=== PATIENT | female | born 1970 | race Caucasian/White ===

== ENCOUNTER 2018-12-03 08:08 | Inpatient (IN) | payer BC ==
[~2018-12-03] VITALS: Ht 160 cm; Wt 81.3 kg
[2018-12-03] MEDS ORDERED: SOD CHLORIDE 0.9% 500 ML IV ONE (10:30)
[2018-12-03 10:35] VITALS: BP 87/53; PULSE 96; RESP 18
[2018-12-03] MEDS ORDERED: SOD CHLORIDE 0.9% 1,000 ML IV ONE (11:00)
[2018-12-03 11:07] VITALS: Ht 160 cm; Wt 81.3 kg
[2018-12-03] MEDS ORDERED: HYDROmorphONE 1 MG/ML SYG IV ONE (11:30)
[2018-12-03] MEDS ORDERED: LORAZEPAM 2 MG INJ IV ONE (11:30)
[2018-12-03] MEDS ORDERED: LORAZEPAM 0.5 MG TAB PO PRN (11:30)
[2018-12-03] MEDS ORDERED: HYDROCODONE/APAP (5/325) TAB PO PRN (11:30)
[2018-12-03] MEDS ORDERED: ZOLPIDEM 5 MG TAB PO PRN (11:30)
[2018-12-03] MEDS ORDERED: ACETAMINOPHEN 325 MG TAB PO PRN (11:30)
[2018-12-03 11:34] VITALS: BP 93/58
[2018-12-03] MEDS ORDERED: SOD CHLORIDE 0.9% 1,000 ML IV SCH (12:00)
[2018-12-03] MEDS: ONDANSETRON 4 MG INJ IV PRN ×2 (12:08→19:04)
[2018-12-03] MEDS: DEXTROSE 5%-0.45% NACL 1,000 ML IV SCH ×2 (12:08→17:20)
[2018-12-03] MEDS ORDERED: FAMOTIDINE 20 MG INJ IV SCH (12:30)
[2018-12-03] MEDS: PANTOPRAZOLE (EC) 40 MG TAB PO SCH (12:47)
[2018-12-03 14:30] VITALS: BP 101/53; PULSE 93; RESP 18
[2018-12-03] MEDS: HYDROmorphONE 0.5 MG/0.5 ML SYG IV PRN (19:05)
[2018-12-03 20:00] VITALS: BP 95/52; PULSE 89; RESP 18
[2018-12-04 02:52] VITALS: BP 109/55; PULSE 88; RESP 16
[2018-12-04] MEDS: DEXTROSE 5%-0.45% NACL 1,000 ML IV SCH ×3 (03:28→10:59)
[2018-12-04] MEDS: PANTOPRAZOLE (EC) 40 MG TAB PO SCH (06:08)
[2018-12-04 07:50] VITALS: BP 110/58; PULSE 92; RESP 20
--- NOTE | 2018-12-04 08:21 | EN ---
Date/Time of Note Date/Time of Note DATE: 12/04/18 TIME: 08:19 Event Note Medicine Medicine Event Note H and P dictated admitted for acute pancreatitis with SIRS and borderline hypotension. Elevated liver enzymes, needs MRCP and supportive care. LEBRON TOLENTINO December 04, 2018 08:21
[2018-12-04] MEDS: HYDROmorphONE 0.5 MG/0.5 ML SYG IV PRN ×3 (09:31→21:13)
[2018-12-04] MEDS: ONDANSETRON 4 MG INJ IV PRN ×2 (09:31→16:53)
[2018-12-04] MEDS ORDERED: PIPER-TAZO 3.375 GM IV (PMX) 100 ML IVPB SCH (10:00)
[2018-12-04] MEDS: PIPER-TAZO 3.375 GM IV (PMX) 100 ML IVPB SCH ×3 (10:51→23:26)
[2018-12-04] MEDS: POTASSIUM CHLORIDE 100 ML IVPB SCH ×2 (12:00→12:12)
[2018-12-04] MEDS: D5W-0.45 NACL + KCL 10 MEQ 1,000 ML IV SCH ×3 (13:21→22:15)
--- NOTE | 2018-12-04 14:36 | PN ---
Date/Time of Note Date/Time of Note DATE: 12/04/18 TIME: 14:36 Objective Vitals Vital Signs Date Temp Pulse Resp B/P (MAP) Pulse Ox O2 O2 Flow FiO2 Time Delivery Rate 12/04/18 98.4 92 20 110/58 94 07:50 (75) 12/03/18 Room Air 10:35 Intake and Output 12/03/18 12/03/18 12/04/18 1515:00 23:00 07:00 IntakeIntake Total 1000 ml 300 ml 1000 ml BalanceBalance 1000 ml 300 ml 1000 ml Results Result Diagram: 12/04/18 0500 12/04/18 0500 Medications Medications Current Medications Ondansetron HCl (Zofran Inj) 4 mg Q6H PRN IV NAUSEA/VOMITING Last administered on 12/04/18at 09:31; Admin Dose 4 MG; Start 12/03/18 at 11:30 Hydromorphone HCl (Dilaudid) 0.5 mg Q4H PRN IV .SEVERE PAIN 7-10 Last administered on 12/04/18at 09:31; Admin Dose 0.5 MG; Start 12/03/18 at 11:30 Zolpidem Tartrate (Ambien) 5 mg QHS PRN PO .INSOMNIA; Start 12/03/18 at 11:30 Lorazepam (Ativan) 0.5 mg Q8H PRN PO ANXIETY; Start 12/03/18 at 11:30 Piperacillin Sod/ Tazobactam Sod 100 ml @ 200 mls/hr Q6 IVPB Last administered on 12/04/18at 10:51; Admin Dose 200 MLS/HR; Start 12/04/18 at 10:00 Famotidine (Pepcid Iv) 20 mg Q12H IV ; Start 12/05/18 at 09:00 Potassium Chloride/Dextrose/ Sod Cl 1,000 ml @ 125 mls/hr Q8H IV Last ad ministered on 12/04/18at 13:21; Admin Dose 125 MLS/HR; Start 12/04/18 at 13:00 VTE Prophylaxis Risk score (from Nsg)>0 risk: 4 SCD applied (from Nsg): Yes Lines/Catheters IV Catheter Type: Pascal in Place: No Assessment/Plan Hospital Course Subjective Patient still with abdominal pain however mildly relieved from yesterday Objective Physical exam General: Patient is laying in bed and answers questions appropriately Mentation: Patient is alert and oriented 4, Head: Normocephalic atraumatic Eyes: EOMI, pupils reactive to light Neck: Supple, nontender, midline Respiratory: Clear to auscultation bilaterally Cardiovascular: regular rate, no obvious murmurs Gastrointestinal: Right upper quadrant tender to palpation, bowel sounds heard. Neurological: Moves all extremities spontaneously Skin: No new skin lesions Assessment and plan Gallstone pancreatitis -Initial lipase at outside facility was mildly elevated at 400, lipase negative now -Keep n.p.o. -IV fluid -Liver labs are trending down -GI on board -MR DINH noted, no clear choledocholithiasis Acute cholecystitis -IV antibiotic -IV fluid -N.p.o. -General surgeon, Dr. Rice consulted -CT at transferring facility showing mildly distended gallbladder, however ultrasound and MRCP done here findings are consistent with acute cholecystitis Elevated liver enzymes -Likely secondary to above gallstone issues -Trending downward -GI on board Hypokalemia -Replete as needed Sepsis -Secondary to above -Lactic pending Hypotension -Borderline, asymptomatic, improved Depression with anxiety -Continue home meds when able Dyslipidemia -Continue home meds with able Disposition -Follow-up with GI and general surgery recommendations, keep n.p.o., IV fluid. SHANTELLE SANTOS December 04, 2018 14:36
[2018-12-04 14:43] VITALS: BP 120/75; PULSE 81; RESP 20
--- NOTE | 2018-12-04 15:14 | CONS ---
Assessment/Plan Assessment/Plan Hospital Course (Demo Recall) Abdominal pain likely secondary to acute cholecystitis Transaminitis likely secondary to above (cholecystitis) Leukocytosis History of GERD Elevate lipase - now improved, unlikely pancreatitis Depression History of bariatric surgery Plan: Discussed with the patient and daughter at bedside the imaging findings and laboratory studies which as most consistent with acute cholecystitis. No immediate need for ERCP. Surgical consult is recommended. Continue IV antibiotics. Supportive care with pain medications as needed. Monitor LFT's and bilirubin. Check amylase and lipase tomorrow. Can have clear liquids from GI standpoint. Patient seen in collaboration with Dr. Crawford. CC: PEDRO CRAWFORD MD ; Consultation Date/Type/Reason Admit Date/Time December 03, 2018 at 10:10 Date of Consultation: December 04, 2018 Type of Consult gastroenterology Reason for Consultation abdominal pain, cholecystitis, possible pancreatitis, possible choledocholithiasis Requesting Provider: SHANTELLE SANTOS Date/Time of Note DATE: 12/04/18 TIME: 14:54 Hx of Present Illness Ms. Rosas is a 48 y/o woman with a history of gastric ulcer, bariatric surgery, depression, and hysterectomy who presented to [facility] for abdominal pain for about the past 2 weeks. The pain is sharp under both ribs associated with nausea and vomiting and shortness of breath due to sever pain. She reports chills, no fevers. She though she had a gastric ulcer due to a past history of this. She has had prior EGD's in the past in 2018. She took pepcid though this did not improve and presented to the ER at [facility]. A CT scan done there showed gallbladder distention though no biliary dilation. Lipase at [facility] was >400, though here at [facility] decreased to 93. She had an abdominal US which showed cholelithiasis and fluid around the gallbladder. MRCP was done 12/03/18 which showed findings consistent with acute cholecystitis though no evidence of biliary dilation or choledocholithiasis. She had marked leukocytosis on admission as well. A 10 point review of systems is otherwise negative except as mentioned in the above HPI. Past Medical History See HPI Medical History: GERD Medications Current Medications Ondansetron HCl (Zofran Inj) 4 mg Q6H PRN IV NAUSEA/VOMITING Last administered on 12/04/18at 09:31; Admin Dose 4 MG; Start 12/03/18 at 11:30 Hydromorphone HCl (Dilaudid) 0.5 mg Q4H PRN IV .SEVERE PAIN 7-10 Last administered on 12/04/18at 09:31; Admin Dose 0.5 MG; Start 12/03/18 at 11:30 Zolpidem Tartrate (Ambien) 5 mg QHS PRN PO .INSOMNIA; Start 12/03/18 at 11:30 Lorazepam (Ativan) 0.5 mg Q8H PRN PO ANXIETY; Start 12/03/18 at 11:30 Piperacillin Sod/ Tazobactam Sod 100 ml @ 200 mls/hr Q6 IVPB Last administered on 12/04/18at 10:51; Admin Dose 200 MLS/HR; Start 12/04/18 at 10:00 Famotidine (Pepcid Iv) 20 mg Q12H IV ; Start 12/05/18 at 09:00 Potassium Chloride/Dextrose/ Sod Cl 1,000 ml @ 125 mls/hr Q8H IV Last administered on 12/04/18at 13:21; Admin Dose 125 MLS/HR; Start 12/04/18 at 13:00 Allergies: Coded Allergies: povidone-iodine (Verified Allergy, Intermediate, 12/03/18) soap (Verified Allergy, Intermediate, 12/03/18) NSAIDS (Non-Steroidal Anti-Inflamma (Verified Allergy, Unknown, 12/03/18) acetaminophen (Verified Allergy, Unknown, 12/03/18) atorvastatin (Verified Allergy, Unknown, 12/03/18) Past Surgical History Past Surgical Hx: other (hysterectomy, bariatric surgery) Family History Significant Family History: no pertinent family hx Social History Alcohol Use: occasionally Smoking Status: Former smoker Exam/Review of Systems Exam Vitals Vital Signs Date Temp Pulse Resp B/P (MAP) Pulse Ox O2 O2 Flow FiO2 Time Delivery Rate 12/04/18 98.0 81 20 120/75 95 14:43 (90) 12/03/18 Room Air 10:35 Intake and Output 12/03/18 12/03/18 12/04/18 1414:59 22:59 06:59 IntakeIntake Total 1000 ml 300 ml 1000 ml BalanceBalance 1000 ml 300 ml 1000 ml Constitutional: alert, oriented Psych: nl mood/affect Head: normocephalic, atraumatic Eyes: nl conjunctiva, nl lids ENMT: nl external ears & nose Neck: supple Respiratory: clear to auscultation Cardiovascular: regular rate and rhythm, nl pulses Gastrointestinal: soft, rebound or guarding, tender (right upper quadrant tenderness to palpation) Musculoskeletal: nl extremities to inspection Extremities: normal pulses Neurological: FLATBED DRIVER II-XII intact, nl mental status, nl speech Skin: nl turgor Lymph: nl lymph nodes Results Result Diagram: 12/04/18 0500 12/04/18 0500 Results 24hrs Laboratory Tests Test 12/04/18 05:00 12/04/18 12:19 White Blood Count 16.8 H Red Blood Count 3.21 L Hemoglobin 9.3 L Hematocrit 27.9 L Mean Corpuscular Volume 86.9 Mean Corpuscular Hemoglobin 29.0 Mean Corpuscular Hemoglobin Concent 33.3 Red Cell Distribution Width 15.9 H Platelet Count 242 Mean Platelet Volume 11.1 H Immature Granulocytes % 1.100 H Neutrophils % Segmented Neutrophils % (Manual) 62 Band Neutrophils % (Manual) 20 H Lymphocytes % Lymphocytes % (Manual) 8 L Monocytes % Monocytes % (Manual) 10 Eosinophils % Basophils % Nucleated Red Blood Cells % 0.0 Immature Granulocytes # 0.180 H Neutrophils # Neutrophils # (Manual) 11.0 H Band Neutrophils # 3.3 H Lymphocytes (Manual) 1.3 Lymphocytes # Monocytes # Monocytes # (Manual) 1.6 H Eosinophils # Basophils # Nucleated Red Blood Cells # Platelet Estimate NORMAL Poikilocytosis 3+ Sodium Level 140 Potassium Level 3.4 L Chloride Level 111 H Carbon Dioxide Level 22 Anion Gap 7 Blood Urea Nitrogen 13 Creatinine 0.80 Est Glomerular Filtrat Rate mL/min > 60 Glucose Level 103 Calcium Level 7.7 L Phosphorus Level 3.2 Magnesium Level 1.5 L Total Bilirubin 0.8 Direct Bilirubin 0.50 H Indirect Bilirubin 0.3 Aspartate Amino Transf (AST/SGOT) 193 H Alanine Aminotransferase (ALT/SGPT) 341 H Alkaline Phosphatase 172 H Total Protein 4.6 L Albumin 2.6 L Globulin 2.00 Albumin/Globulin Ratio 1.30 Triglycerides Level 87 Cholesterol Level 107 LDL Cholesterol, Calculated 47 HDL Cholesterol 43 Cholesterol/HDL Ratio 2.4 Lipase 93 Thyroid Stimulating Hormone (TSH) 1.180 Free Thyroxine Index 2.29 Thyroxine (T4) 5.8 Triiodothyronine (T3) Uptake 39.4 Urine Color NERISSA Urine Clarity CLEAR Urine pH 6.0 Urine Specific [place] 1.011 Urine Ketones NEGATIVE Urine Nitrite NEGATIVE Urine Bilirubin NEGATIVE Urine Urobilinogen 2+ H Urine Leukocyte Esterase NEGATIVE Urine Hemoglobin NEGATIVE Urine Glucose NEGATIVE Urine Total Protein NEGATIVE Imaging Imaging Abdominal US 12/03/18: IMPRESSION: Cholelithiasis with gallbladder wall thickening and pericholecystic fluid may represent acute cholecystitis. This could be confirmed with a HIDA scan if clinically indicated. MRCP 12/03/18: IMPRESSION: Limited evaluation due to motion and susceptibility artifact obscuring the mid abdomen. Cholelithiasis. Gallbladder wall thickening suggestive of acute cholecystitis. No evidence of biliary ductal dilatation or choledocholithiasis of the visualized common bile duct. Trace mesenteric edema and ascites. Correlate for pancreatitis. Medications Medication Current Medications Ondansetron HCl (Zofran Inj) 4 mg Q6H PRN IV NAUSEA/VOMITING Last administered on 12/04/18 09:31; Admin Dose 4 MG; Start 12/03/18 at 11:30 Hydromorphone HCl (Dilaudid) 0.5 mg Q4H PRN IV .SEVERE PAIN 7-10 Last administered on 12/04/18 09:31; Admin Dose 0.5 MG; Start 12/03/18 at 11:30 Zolpidem Tartrate (Ambien) 5 mg QHS PRN PO .INSOMNIA; Start 12/03/18 at 11:30 Lorazepam (Ativan) 0.5 mg Q8H PRN PO ANXIETY; Start 12/03/18 at 11:30 Piperacillin Sod/ Tazobactam Sod 100 ml @ 200 mls/hr Q6 IVPB Last administered on 12/04/18at 10:51; Admin Dose 200 MLS/HR; Start 12/04/18 at 10:00 Famotidine (Pepcid Iv) 20 mg Q12H IV ; Start 12/05/18 at 09:00 Potassium Chloride/Dextrose/ Sod Cl 1,000 ml @ 125 mls/hr Q8H IV Last administered on 12/04/18at 13:21; Admin Dose 125 MLS/HR; Start 12/04/18 at 13:00 DEYSI RICCI NP December 04, 2018 15:09
[2018-12-04 20:00] VITALS: BP 149/85; PULSE 88; RESP 17
--- NOTE | 2018-12-04 20:04 | CONS ---
Assessment/Plan Assessment/Plan Hospital Course (Demo Recall) 1. Cholecystitis, Cholelithiasis, Transaminitis -iv abx -ivf -npo -hida pending Thank you Consultation Date/Type/Reason Admit Date/Time December 03, 2018 at 10:10 Date of Consultation: December 04, 2018 Date/Time of Note DATE: 12/04/18 TIME: 20:04 Past Medical History Medical History: GERD Medications Current Medications Ondansetron HCl (Zofran Inj) 4 mg Q6H PRN IV NAUSEA/VOMITING Last administered on 12/04/18at 16:53; Admin Dose 4 MG; Start 12/03/18 at 11:30 Hydromorphone HCl (Dilaudid) 0.5 mg Q4H PRN IV .SEVERE PAIN 7-10 Last administered on 12/04/18at 16:50; Admin Dose 0.5 MG; Start 12/03/18 at 11:30 Zolpidem Tartrate (Ambien) 5 mg QHS PRN PO .INSOMNIA; Start 12/03/18 at 11:30 Lorazepam (Ativan) 0.5 mg Q8H PRN PO ANXIETY; Start 12/03/18 at 11:30 Piperacillin Sod/ Tazobactam Sod 100 ml @ 200 mls/hr Q6 IVPB Last administered on 12/04/18at 17:53; Admin Dose 200 MLS/HR; Start 12/04/18 at 10:00 Famotidine (Pepcid Iv) 20 mg Q12H IV ; Start 12/05/18 at 09:00 Potassium Chloride/Dextrose/ Sod Cl 1,000 ml @ 125 mls/hr Q8H IV Last admi nistered on 12/04/18at 13:21; Admin Dose 125 MLS/HR; Start 12/04/18 at 13:00 Allergies: Coded Allergies: povidone-iodine (Verified Allergy, Intermediate, 12/03/18) soap (Verified Allergy, Intermediate, 12/03/18) NSAIDS (Non-Steroidal Anti-Inflamma (Verified Allergy, Unknown, 12/03/18) acetaminophen (Verified Allergy, Unknown, 12/03/18) atorvastatin (Verified Allergy, Unknown, 12/03/18) Past Surgical History Past Surgical Hx: other (hysterectomy, bariatric surgery) Social History Alcohol Use: occasionally Smoking Status: Former smoker Exam/Review of Systems Exam Vitals Vital Signs Date Temp Pulse Resp B/P (MAP) Pulse Ox O2 O2 Flow FiO2 Time Delivery Rate 12/04/18 98.0 81 20 120/75 95 14:43 (90) 12/03/18 Room Air 10:35 Intake and Output 12/03/18 12/03/18 12/04/18 1515:00 23:00 07:00 IntakeIntake Total 1000 ml 300 ml 1000 ml BalanceBalance 1000 ml 300 ml 1000 ml Results Result Diagram: 12/04/18 0500 12/04/18 0500 Results 24hrs Laboratory Tests Test 12/04/18 05:00 12/04/18 12:19 12/04/18 14:55 White Blood Count 16.8 H Red Blood Count 3.21 L Hemoglobin 9.3 L Hematocrit 27.9 L Mean Corpuscular Volume 86.9 Mean Corpuscular Hemoglobin 29.0 Mean Corpuscular Hemoglobin Concent 33.3 Red Cell Distribution Width 15.9 H Platelet Count 242 Mean Platelet Volume 11.1 H Immature Granulocytes % 1.100 H Neutrophils % Segmented Neutrophils % (Manual) 62 Band Neutrophils % (Manual) 20 H Lymphocytes % Lymphocytes % (Manual) 8 L Monocytes % Monocytes % (Manual) 10 Eosinophils % Basophils % Nucleated Red Blood Cells % 0.0 Immature Granulocytes # 0.180 H Neutrophils # Neutrophils # (Manual) 11.0 H Band Neutrophils # 3.3 H Lymphocytes (Manual) 1.3 Lymphocytes # Monocytes # Monocytes # (Manual) 1.6 H Eosinophils # Basophils # Nucleated Red Blood Cells # Platelet Estimate NORMAL Poikilocytosis 3+ Sodium Level 140 Potassium Level 3.4 L Chloride Level 111 H Carbon Dioxide Level 22 Anion Gap 7 Blood Urea Nitrogen 13 Creatinine 0.80 Est Glomerular Filtrat Rate mL/min > 60 Glucose Level 103 Calcium Level 7.7 L Phosphorus Level 3.2 Magnesium Level 1.5 L Total Bilirubin 0.8 Direct Bilirubin 0.50 H Indirect Bilirubin 0.3 Aspartate Amino Transf (AST/SGOT) 193 H Alanine Aminotransferase (ALT/SGPT) 341 H Alkaline Phosphatase 172 H Total Protein 4.6 L Albumin 2.6 L Globulin 2.00 Albumin/Globulin Ratio 1.30 Triglycerides Level 87 Cholesterol Level 107 LDL Cholesterol, Calculated 47 HDL Cholesterol 43 Cholesterol/HDL Ratio 2.4 Lipase 93 Thyroid Stimulating Hormone (TSH) 1.180 Free Thyroxine Index 2.29 Thyroxine (T4) 5.8 Triiodothyronine (T3) Uptake 39.4 Urine Color NERISSA Urine Clarity CLEAR Urine pH 6.0 Urine Specific [place] 1.011 Urine Ketones NEGATIVE Urine Nitrite NEGATIVE Urine Bilirubin NEGATIVE Urine Urobilinogen 2+ H Urine Leukocyte Esterase NEGATIVE Urine Hemoglobin NEGATIVE Urine Glucose NEGATIVE Urine Total Protein NEGATIVE Lactic Acid Level 1.5 Medications Medication Current Medications Ondansetron HCl (Zofran Inj) 4 mg Q6H PRN IV NAUSEA/VOMITING Last administered on 12/04/18at 16:53; Admin Dose 4 MG; Start 12/03/18 at 11:30 Hydromorphone HCl (Dilaudid) 0.5 mg Q4H PRN IV .SEVERE PAIN 7-10 Last administered on 12/04/18at 16:50; Admin Dose 0.5 MG; Start 12/03/18 at 11:30 Zolpidem Tartrate (Ambien) 5 mg QHS PRN PO .INSOMNIA; Start 12/03/18 at 11:30 Lorazepam (Ativan) 0.5 mg Q8H PRN PO ANXIETY; Start 12/03/18 at 11:30 Piperacillin Sod/ Tazobactam Sod 100 ml @ 200 mls/hr Q6 IVPB Last administered on 12/04/18at 17:53; Admin Dose 200 MLS/HR; Start 12/04/18 at 10:00 Famotidine (Pepcid Iv) 20 mg Q12H IV ; Start 12/05/18 at 09:00 Potassium Chloride/Dextrose/ Sod Cl 1,000 ml @ 125 mls/hr Q8H IV Last administered on 12/04/18at 13:21; Admin Dose 125 MLS/HR; Start 12/04/18 at 13:00 CHASE DIAL MD December 04, 2018 20:04
[2018-12-05] MEDS ORDERED: MAGNESIUM SULFATE 2 GM/50 ML 50 ML IVPB ONE (00:30)
[2018-12-05] MEDS: HYDROmorphONE 0.5 MG/0.5 ML SYG IV PRN ×4 (05:30→21:17)
[2018-12-05] MEDS: PIPER-TAZO 3.375 GM IV (PMX) 100 ML IVPB SCH ×3 (05:31→17:12)
[2018-12-05] MEDS: ONDANSETRON 4 MG INJ IV PRN ×4 (05:31→21:17)
[2018-12-05 07:59] VITALS: BP 122/76; PULSE 76; RESP 16
[2018-12-05] MEDS: FAMOTIDINE 20 MG INJ IV SCH ×2 (08:56→21:01)
[2018-12-05] MEDS: D5W-0.45 NACL + KCL 10 MEQ 1,000 ML IV SCH ×2 (08:57→20:58)
--- NOTE | 2018-12-05 12:18 | PN ---
Date/Time of Note Date/Time of Note DATE: 12/05/18 TIME: 12:17 Objective Vitals Vital Signs Date Temp Pulse Resp B/P (MAP) Pulse Ox O2 O2 Flow FiO2 Time Delivery Rate 12/05/18 98.4 76 16 122/76 93 07:59 (91) 12/03/18 Room Air 10:35 Intake and Output 12/04/18 12/04/18 12/05/18 1515:00 23:00 07:00 IntakeIntake Total 905 ml 1100 ml 700 ml BalanceBalance 905 ml 1100 ml 700 ml Results Result Diagram: 12/05/1852312/05/18523 Medications Medications Current Medications Ondansetron HCl (Zofran Inj) 4 mg Q6H PRN IV NAUSEA/VOMITING Last administered on 12/05/18 09:58; Admin Dose 4 MG; Start 12/03/18 at 11:30 Hydromorphone HCl (Dilaudid) 0.5 mg Q4H PRN IV .SEVERE PAIN 7-10 Last administered on 12/05/18 09:55; Admin Dose 0.5 MG; Start 12/03/18 at 11:30 Zolpidem Tartrate (Ambien) 5 mg QHS PRN PO .INSOMNIA; Start 12/03/18 at 11:30 Lorazepam (Ativan) 0.5 mg Q8H PRN PO ANXIETY; Start 12/03/18 at 11:30 Piperacillin Sod/ Tazobactam Sod 100 ml @ 200 mls/hr Q6 IVPB Last administered on 12/05/18 05:31; Admin Dose 200 MLS/HR; Start 12/04/18 at 10:00 Famotidine (Pepcid Iv) 20 mg Q12H IV Last administered on 12/05/18 08:56; Admin Dose 20 MG; Start 12/05/18 at 09:00 Potassium Chloride/Dextrose/ Sod Cl 1,000 ml @ 125 mls/hr Q8H IV Last administered on 12/05/18 08:57; Admin Dose 125 MLS/HR; Start 12/04/18 at 13:00 VTE Prophylaxis Risk score (from Ns)>0 risk: 4 SCD applied (from Ns): Yes Lines/Catheters IV Catheter Type: Pascal in Place: No Assessment/Plan Hospital Course Subjective Patient still with abdominal pain however mildly relieved from yesterday Objective Physical exam General: Patient is laying in bed and answers questions appropriately Mentation: Patient is alert and oriented 4, Head: Normocephalic atraumatic Eyes: EOMI, pupils reactive to light Neck: Supple, nontender, midline Respiratory: Clear to auscultation bilaterally Cardiovascular: regular rate, no obvious murmurs Gastrointestinal: Right upper quadrant tender to palpation, bowel sounds heard. Neurological: Moves all extremities spontaneously Skin: No new skin lesions Assessment and plan Gallstone pancreatitis -Initial lipase at outside facility was mildly elevated at 400, lipase negative now -Keep n.p.o. -IV fluid -Liver labs are trending down -GI on board -MRCP noted, no clear choledocholithiasis Acute cholecystitis -IV antibiotic -IV fluid -N.p.o. -General surgeon, Dr. Rice consulted -CT at transferring facility showing mildly distended gallbladder, however ultrasound and MRCP done here findings are consistent with acute cholecystitis -HIDA pending Elevated liver enzymes -Likely secondary to above gallstone issues -Trending downward -GI on board Hypokalemia -Replete as needed Sepsis -Secondary to above -Lactic pending Hypotension -Borderline, asymptomatic, improved Depression with anxiety -Continue home meds when able Dyslipidemia -Continue home meds with able Disposition -Follow-up with GI and general surgery recommendations, keep n.p.o., IV fluid. SHANTELLE SANTOS December 05, 2018 12:18
[2018-12-05 14:41] VITALS: BP 115/76; PULSE 81; RESP 16
--- NOTE | 2018-12-05 14:42 | PN ---
Date/Time of Note Date/Time of Note DATE: 12/05/18 TIME: 14:35 Assessment/Plan VTE Prophylaxis Risk score (from Nsg)>0 risk: 2 SCD applied (from Ns): Yes SCD contraindicated: low risk/ambulating Pharmacological prophylaxis: heparin Lines/Catheters IV Catheter Type (from Nrsg): Peripheral IV Urinary Cath still in place: No Assessment/Plan Assessment/Plan Abdominal pain likely secondary to acute cholecystitis Transaminitis likely secondary to above (cholecystitis) Leukocytosis History of GERD Elevate lipase - now improved, amylase normal - unlikely pancreatitis Depression History of bariatric surgery Plan: HIDA scan pending. No immediate need for ERCP. Further plan per surgery team. Continue IV antibiotics. Supportive care with pain medications as needed. Monitor LFT's and bilirubin. Keep NPO. Patient seen in collaboration with Dr. Crawford. Subjective: Patient is NPO, denies any nausea or vomiting. States abdominal pain under the ribcage is about the same, mild improvement. HIDA scan pending. Denies fevers or chills. Discussed plan with patient. Physical exam: Constitutional: alert, oriented Psych: nl mood/affect Head: normocephalic, atraumatic Eyes: nl conjunctiva, nl lids ENMT: nl external ears & nose Neck: supple Respiratory: clear to auscultation Cardiovascular: regular rate and rhythm, nl pulses Gastrointestinal: soft, no rebound or guarding, mildly tender bilateral upper quadrants Musculoskeletal: nl extremities to inspection Extremities: normal pulses Neurological: ASSISTANT ART DIRECTOR II-XII intact, nl mental status, nl speech Skin: nl turgor Lymph: nl lymph nodes Result Diagram: 12/05/1852312/05/1824 Results 24hrs Laboratory Tests Test 12/04/18 14:55 12/05/18 05:24 Lactic Acid Level 1.5 White Blood Count 12.4 #H Red Blood Count 3.30 L Hemoglobin 9.2 L Hematocrit 28.5 L Mean Corpuscular Volume 86.4 Mean Corpuscular Hemoglobin 27.9 L Mean Corpuscular Hemoglobin Concent 32.3 Red Cell Distribution Width 16.0 H Platelet Count 246 Mean Platelet Volume 11.5 H Immature Granulocytes % 1.900 H Neutrophils % Segmented Neutrophils % (Manual) 71 Band Neutrophils % (Manual) 22 H Lymphocytes % Lymphocytes % (Manual) 6 L Monocytes % Monocytes % (Manual) 1 Eosinophils % Basophils % Nucleated Red Blood Cells % 0.0 Immature Granulocytes # 0.230 H Neutrophils # Neutrophils # (Manual) 9.1 H Band Neutrophils # 2.7 H Lymphocytes (Manual) 0.7 L Lymphocytes # Monocytes # Monocytes # (Manual) 0.1 L Eosinophils # Basophils # Nucleated Red Blood Cells # Platelet Estimate NORMAL Giant Platelets 3 H Poikilocytosis 2+ Ovalocytes 1+ Sodium Level 141 Potassium Level 3.6 Chloride Level 113 H Carbon Dioxide Level 22 Anion Gap 6 Blood Urea Nitrogen 6 L Creatinine 0.70 Est Glomerular Filtrat Rate mL/min > 60 Glucose Level 117 Calcium Level 7.9 L Magnesium Level 2.3 Total Bilirubin 0.6 Direct Bilirubin 0.10 # Indirect Bilirubin 0.5 Aspartate Amino Transf (AST/SGOT) 80 H Alanine Aminotransferase (ALT/SGPT) 230 H Alkaline Phosphatase 239 H Total Protein 5.5 L Albumin 2.8 L Globulin 2.70 Albumin/Globulin Ratio 1.03 Amylase Level 45 Lipase 145 CC: PEDRO CRAWFORD MD ; Exam/Review of Systems Exam Vitals Vital Signs Date Temp Pulse Resp B/P (MAP) Pulse Ox O2 O2 Flow FiO2 Time Delivery Rate 12/05/18 98.4 76 16 122/76 93 07:59 (91) 12/03/18 Room Air 10:35 Intake and Output 12/04/18 12/04/18 12/05/18 1515:00 23:00 07:00 IntakeIntake Total 905 ml 1100 ml 700 ml BalanceBalance 905 ml 1100 ml 700 ml Results Results 24hrs Laboratory Tests Test 12/04/18 14:55 12/05/18 05:24 Lactic Acid Level 1.5 White Blood Count 12.4 #H Red Blood Count 3.30 L Hemoglobin 9.2 L Hematocrit 28.5 L Mean Corpuscular Volume 86.4 Mean Corpuscular Hemoglobin 27.9 L Mean Corpuscular Hemoglobin Concent 32.3 Red Cell Distribution Width 16.0 H Platelet Count 246 Mean Platelet Volume 11.5 H Immature Granulocytes % 1.900 H Neutrophils % Segmented Neutrophils % (Manual) 71 Band Neutrophils % (Manual) 22 H Lymphocytes % Lymphocytes % (Manual) 6 L Monocytes % Monocytes % (Manual) 1 Eosinophils % Basophils % Nucleated Red Blood Cells % 0.0 Immature Granulocytes # 0.230 H Neutrophils # Neutrophils # (Manual) 9.1 H Band Neutrophils # 2.7 H Lymphocytes (Manual) 0.7 L Lymphocytes # Monocytes # Monocytes # (Manual) 0.1 L Eosinophils # Basophils # Nucleated Red Blood Cells # Platelet Estimate NORMAL Giant Platelets 3 H Poikilocytosis 2+ Ovalocytes 1+ Sodium Level 141 Potassium Level 3.6 Chloride Level 113 H Carbon Dioxide Level 22 Anion Gap 6 Blood Urea Nitrogen 6 L Creatinine 0.70 Est Glomerular Filtrat Rate mL/min > 60 Glucose Level 117 Calcium Level 7.9 L Magnesium Level 2.3 Total Bilirubin 0.6 Direct Bilirubin 0.10 # Indirect Bilirubin 0.5 Aspartate Amino Transf (AST/SGOT) 80 H Alanine Aminotransferase (ALT/SGPT) 230 H Alkaline Phosphatase 239 H Total Protein 5.5 L Albumin 2.8 L Globulin 2.70 Albumin/Globulin Ratio 1.03 Amylase Level 45 Lipase 145 Medications Medication Current Medications Ondansetron HCl (Zofran Inj) 4 mg Q6H PRN IV NAUSEA/VOMITING Last administered on 12/05/18 09:58; Admin Dose 4 MG; Start 12/03/18 at 11:30 Hydromorphone HCl (Dilaudid) 0.5 mg Q4H PRN IV .SEVERE PAIN 7-10 Last administered on 12/05/18 09:55; Admin Dose 0.5 MG; Start 12/03/18 at 11:30 Zolpidem Tartrate (Ambien) 5 mg QHS PRN PO .INSOMNIA; Start 12/03/18 at 11:30 Lorazepam (Ativan) 0.5 mg Q8H PRN PO ANXIETY; Start 12/03/18 at 11:30 Piperacillin Sod/ Tazobactam Sod 100 ml @ 200 mls/hr Q6 IVPB Last administered on 12/05/18 12:20; Admin Dose 200 MLS/HR; Start 12/04/18 at 10:00 Famotidine (Pepcid Iv) 20 mg Q12H IV Last administered on 12/05/18 08:56; Admin Dose 20 MG; Start 12/05/18 at 09:00 Potassium Chloride/Dextrose/ Sod Cl 1,000 ml @ 125 mls/hr Q8H IV Last administered on 12/05/18 08:57; Admin Dose 125 MLS/HR; Start 12/04/18 at 13:00 DEYSI RICCI NP December 05, 2018 14:42
[2018-12-05 20:00] VITALS: BP 126/66; PULSE 76; RESP 18
--- NOTE | 2018-12-05 23:28 | PN ---
Date/Time of Note Date/Time of Note DATE: 12/05/18 TIME: 23:28 Assessment/Plan Lines/Catheters IV Catheter Type (from [facility]): Peripheral IV Pascal in Place (from [facility]): No Exam/Review of Systems Vital Signs Vitals Vital Signs Date Temp Pulse Resp B/P (MAP) Pulse Ox O2 O2 Flow FiO2 Time Delivery Rate 12/05/18 98.4 76 18 126/66 97 20:00 (86) 12/03/18 Room Air 10:35 Intake and Output 12/04/18 12/04/18 12/05/18 1515:00 23:00 07:00 IntakeIntake Total 905 ml 1100 ml 700 ml BalanceBalance 905 ml 1100 ml 700 ml Results Result Diagram: 12/05/18 0524 12/05/18 0524 CHASE DIAL MD December 05, 2018 23:28
[2018-12-06] MEDS: PIPER-TAZO 3.375 GM IV (PMX) 100 ML IVPB SCH ×4 (00:19→17:51)
[2018-12-06] MEDS: HYDROmorphONE 0.5 MG/0.5 ML SYG IV PRN ×2 (01:30→05:48)
[2018-12-06 02:00] VITALS: BP 123/76; PULSE 65; RESP 17
[2018-12-06] MEDS: D5W-0.45 NACL + KCL 10 MEQ 1,000 ML IV SCH ×3 (05:48→15:08)
[2018-12-06] MEDS: ONDANSETRON 4 MG INJ IV PRN (05:48)
--- NOTE | 2018-12-06 07:23 | HP ---
DATE OF ADMISSION: 12/03/2018 PRESENTING COMPLAINT: Abdominal pain. HISTORY OF PRESENTING COMPLAINT: A 48-year-old female with past medical history of morbid obesity, status post weight loss surgery, which sounds like gastric stapling, gastric ulcer, major depressive disorder, who was found to have a jejunal ulcer at [place] because of abdominal pain and acute pancreatitis. She has a history of gallstones. She has not had similar pain before. Currently, she has been feeling sick for the last 10 days. However, over the last 1 day, she has got some worsening epigastric abdominal pain that radiates to her back. She has not vomitted but she is having a lot of nausea. Pain is rated at a 10 out of 10. She has not had similar pain in the past. There is no hematemesis, hematochezia or melenic stool however. ER evaluation confirmed acute pancreatitis with the presence of elevation in her lipase levels, she was also found to have leukocytosis. She was transferred to us for further management due to insurance reasons PAST MEDICAL HISTORY: Summarized above. PAST SURGICAL HISTORY: Summarized above. The patient also had a hysterectomy and a left hand finger surgery. ALLERGIES: SHE REPORTS ALLERGIC TO NSAIDs, LIPITOR, IODINE. FAMILY HISTORY: Positive for hypertension, diabetes with history of gallstones. REVIEW OF SYSTEMS: Per HPI. PHYSICAL EXAMINATION: VITAL SIGNS: Temperature 99.3, pulse 96, respirations 18, blood pressure is 87/53 . GENERAL: anxious, obese. HEENT: Head is normocephalic. Pupils equal and reactive. There is no scleral jaundice. No conjunctivae pallor. Mucous membranes dry. Posterior pharynx is clear of erythema and exudate. NECK: Supple, nontender. CHEST: Clear to auscultation with good air entry on both sides. CARDIOVASCULAR: S1 and S2 only. ABDOMEN: Quite tender, especially in the epigastric area, but not tympanitic or distended. Positive bowel sounds. SKIN: Devoid of rash or jaundice. EXTREMITIES: Lower extremities negative for edema. NEUROLOGIC: No gross focal deficits. PSYCHIATRIC: The patient is anxious, but denies suicidal or homicidal ideation. LABORATORY VALUES: Were reviewed from [facility] and pertinent findings essentially as summarized above. The CT scan of the abdomen was not very revealing of her abdomen and pelvis. ASSESSMENT: A 48-year-old female status post gastric stapling sent to us 2/2 abd pain admitted and managed as follows : 1. Abdominal pain 2/2 acute pancreatitis . 2. Possible choledocholithiasis with acute cholecystitis and possible gallstone pancreatitis. -no gallstones noted on imaging 3. Previous Morbid obesity status post gastric stapling 4. She had DM2 she was obese. She also had high cholesterol at the time, but has been off medications since. 5. Borderline hypotension: ?SIRS 6. History of gastric ulcer, status post treatment per report Plan: admit for continued care NPO for now, IV fluids, pain control, PPI therapy. The patient will need a gallbladder ultrasound to start out and subsequent MRCP. Depending on the findings will determine if we will get a surgery and GI consultation. I will keep her pain under control with pain medicine. I will resume her pain home medications throughout her hospital stay. Plan of care has been discussed with her in detail. Questions have been answered. For further information and clarification, please review the chart. Dictated By: LEBRON TOLENTINO MD, BA/HARINDER Conf#: [id number] DID#: [id number] MTDWerner
[2018-12-06 08:40] VITALS: BP 115/65; PULSE 73; RESP 18
[2018-12-06] MEDS: FAMOTIDINE 20 MG INJ IV SCH ×2 (08:49→20:31)
[2018-12-06] MEDS ORDERED: traMADol 50 MG TAB PO PRN (11:00)
[2018-12-06 14:26] VITALS: BP 137/73; PULSE 78; RESP 18
--- NOTE | 2018-12-06 15:47 | PN ---
Date/Time of Note Date/Time of Note DATE: 12/06/18 TIME: 15:30 Assessment/Plan VTE Prophylaxis Risk score (from Nsg)>0 risk: 2 SCD applied (from Nsg): Yes Pharmacological prophylaxis: other (scds) Lines/Catheters IV Catheter Type (from Nrsg): Peripheral IV Urinary Cath still in place: No Assessment/Plan Hospital Course Assessment/Plan Abdominal pain likely secondary to acute cholecystitis -HIDA scan -No scintigraphic evidence to suggest the presence of common bile or cystic ducts obstruction. Transaminitis- trending down -MRCP-No evidence of biliary ductal dilatation or choledocholithiasis of the visualized common bile duct. -Gallbladder wall thickening suggestive of acute cholecystitis Leukocytosis- resolved History of GERD Elevate lipase -Amylase normal Depression History of bariatric surgery Plan: No plan for ERCP at this time Clear liquid diet Continue IV antibiotics. Supportive care with pain medications as needed. Monitor LFT's Patient seen in collaboration with Dr. Crawford. Subjective: Pt on clear liquid diet, lipase elevated today, LFTS trending down. Currently she c/o upper abdominal pain 5/10 No BM for for 5-6 days, will add MiraLAX. Encourage ambulation. Pt is tolerating clear liquid diet PHYSICAL EXAMINATION: GENERAL: Well developed, well nourished, alert & oriented x 3, in no acute distress SKIN: No lesions HEAD: Normocephalic, atraumatic, no tenderness. EYES: Pupils equal reactive to light, non-icteric, no discharge. EARS/NOSE AND THROAT: Ears normal, nose normal. NECK: Supple, no masses CHEST: Inspection within normal limits. CARDIOVASCULAR: Heart: Regular rate and rhythm RESPIRATORY: Lungs clear to auscultation GASTROINTESTINAL AND LIVER: Abdomen: Soft, upper abdominal pain 5/10, non- distended, no hernias, normoactive bowel sounds. Rectal: Deferred. EXTREMITIES: No cyanosis, clubbing or edema. Result Diagram: 12/06/18 0508 12/06/18 0508 Results 24hrs Laboratory Tests Test 12/06/18 05:08 White Blood Count 7.4 # Red Blood Count 3.55 L Hemoglobin 9.9 L Hematocrit 30.6 L Mean Corpuscular Volume 86.2 Mean Corpuscular Hemoglobin 27.9 L Mean Corpuscular Hemoglobin Concent 32.4 Red Cell Distribution Width 15.9 H Platelet Count 249 Mean Platelet Volume 11.6 H Immature Granulocytes % 0.700 H Neutrophils % 70.0 Lymphocytes % 15.7 Monocytes % 8.6 Eosinophils % 4.6 Basophils % 0.4 Nucleated Red Blood Cells % 0.0 Immature Granulocytes # 0.050 H Neutrophils # 5.2 Lymphocytes # 1.2 Monocytes # 0.6 Eosinophils # 0.3 Basophils # 0.0 Nucleated Red Blood Cells # 0.0 Sodium Level 141 Potassium Level 3.8 Chloride Level 110 Carbon Dioxide Level 24 Anion Gap 7 Blood Urea Nitrogen 3 L Creatinine 0.68 Est Glomerular Filtrat Rate mL/min > 60 Glucose Level 109 Calcium Level 8.3 L Magnesium Level 1.9 Total Bilirubin 0.7 Direct Bilirubin 0.10 Indirect Bilirubin 0.6 Aspartate Amino Transf (AST/SGOT) 66 H Alanine Aminotransferase (ALT/SGPT) 175 H Alkaline Phosphatase 263 H Total Protein 5.9 L Albumin 3.2 L Globulin 2.70 Albumin/Globulin Ratio 1.18 Lipase 427 H Exam/Review of Systems Exam Vitals Vital Signs Date Temp Pulse Resp B/P (MAP) Pulse Ox O2 O2 Flow FiO2 Time Delivery Rate 12/06/18 97.8 78 18 137/73 96 14:26 (94) 12/03/18 Room Air 10:35 Intake and Output 12/05/18 12/05/18 12/06/18 1515:00 23:00 07:00 IntakeIntake Total 650 ml 1100 ml 1200 ml BalanceBalance 650 ml 1100 ml 1200 ml Results Results 24hrs Laboratory Tests Test 12/06/18 05:08 White Blood Count 7.4 # Red Blood Count 3.55 L Hemoglobin 9.9 L Hematocrit 30.6 L Mean Corpuscular Volume 86.2 Mean Corpuscular Hemoglobin 27.9 L Mean Corpuscular Hemoglobin Concent 32.4 Red Cell Distribution Width 15.9 H Platelet Count 249 Mean Platelet Volume 11.6 H Immature Granulocytes % 0.700 H Neutrophils % 70.0 Lymphocytes % 15.7 Monocytes % 8.6 Eosinophils % 4.6 Basophils % 0.4 Nucleated Red Blood Cells % 0.0 Immature Granulocytes # 0.050 H Neutrophils # 5.2 Lymphocytes # 1.2 Monocytes # 0.6 Eosinophils # 0.3 Basophils # 0.0 Nucleated Red Blood Cells # 0.0 Sodium Level 141 Potassium Level 3.8 Chloride Level 110 Carbon Dioxide Level 24 Anion Gap 7 Blood Urea Nitrogen 3 L Creatinine 0.68 Est Glomerular Filtrat Rate mL/min > 60 Glucose Level 109 Calcium Level 8.3 L Magnesium Level 1.9 Total Bilirubin 0.7 Direct Bilirubin 0.10 Indirect Bilirubin 0.6 Aspartate Amino Transf (AST/SGOT) 66 H Alanine Aminotransferase (ALT/SGPT) 175 H Alkaline Phosphatase 263 H Total Protein 5.9 L Albumin 3.2 L Globulin 2.70 Albumin/Globulin Ratio 1.18 Lipase 427 H Medications Medication Current Medications Ondansetron HCl (Zofran Inj) 4 mg Q6H PRN IV NAUSEA/VOMITING Last administered on 12/06/18 05:48; Admin Dose 4 MG; Start 12/03/18 at 11:30 Zolpidem Tartrate (Ambien) 5 mg QHS PRN PO .INSOMNIA; Start 12/03/18 at 11:30 Lorazepam (Ativan) 0.5 mg Q8H PRN PO ANXIETY; Start 12/03/18 at 11:30 Piperacillin Sod/ Tazobactam Sod 100 ml @ 200 mls/hr Q6 IVPB Last administered on 12/06/18at 13:31; Admin Dose 200 MLS/HR; Start 12/04/18 at 10:00 Famotidine (Pepcid Iv) 20 mg Q12H IV Last administered on 12/06/18at 08:49; Admin Dose 20 MG; Start 12/05/18 at 09:00 Potassium Chloride/Dextrose/ Sod Cl 1,000 ml @ 125 mls/hr Q8H IV Last administered on 12/06/18at 15:08; Admin Dose 125 MLS/HR; Start 12/04/18 at 13:00 Tramadol HCl (Ultram) 50 mg Q6H PRN PO MODERATE PAIN LEVEL 4-6; Start 12/06/18 at 11:00 FABRICE GAYTAN December 06, 2018 15:41
[2018-12-06] MEDS ORDERED: morphine 2 MG INJ IV PRN (16:00)
[2018-12-06] MEDS ORDERED: DULOXETINE 30 MG CAP DR PO SCH (16:00)
--- NOTE | 2018-12-06 17:56 | PN ---
Date/Time of Note Date/Time of Note DATE: 12/06/18 TIME: 17:51 Assessment/Plan VTE Prophylaxis Risk score (from Ns)>0 risk: 2 SCD applied (from Ns): Yes Pharmacological prophylaxis: NA/contraindicated Pharm contraindication: low risk/ambulating Lines/Catheters IV Catheter Type (from Nrsg): Peripheral IV Urinary Cath still in place: No Assessment/Plan Assessment/Plan 1. Acute gallstone pancreatitis - lipase elevated again and discuss with patient keeping NPO. She wants to eat so compromised with clears and advised to stop eating if experiencing pain - continue IVF for now - GI on board and appreciate recommendations - MRCP negative for acute choledocholithiasis 2. Acute cholecystitis - Discussed with patient if she would like to eat, will follow up as outpatient for lap daisy if able to tolerate PO intake - Gen surgery consultation appreciated and informed of patients request to try diet and monitor for tolerance with outpatient f/up planned - HIDA scan negative 3. Transaminitis - improving 4. Depression with anxiety - Continue Cymbalta 5. Dyslipidemia - Continue home meds with able 6. Disposition - Will monitor on clear diet and if unable to tolerate due to pain will change to NPO. Result Diagram: 12/06/18 0508 12/06/18 0508 Results 24hrs Laboratory Tests Test 12/06/18 05:08 White Blood Count 7.4 # Red Blood Count 3.55 L Hemoglobin 9.9 L Hematocrit 30.6 L Mean Corpuscular Volume 86.2 Mean Corpuscular Hemoglobin 27.9 L Mean Corpuscular Hemoglobin Concent 32.4 Red Cell Distribution Width 15.9 H Platelet Count 249 Mean Platelet Volume 11.6 H Immature Granulocytes % 0.700 H Neutrophils % 70.0 Lymphocytes % 15.7 Monocytes % 8.6 Eosinophils % 4.6 Basophils % 0.4 Nucleated Red Blood Cells % 0.0 Immature Granulocytes # 0.050 H Neutrophils # 5.2 Lymphocytes # 1.2 Monocytes # 0.6 Eosinophils # 0.3 Basophils # 0.0 Nucleated Red Blood Cells # 0.0 Sodium Level 141 Potassium Level 3.8 Chloride Level 110 Carbon Dioxide Level 24 Anion Gap 7 Blood Urea Nitrogen 3 L Creatinine 0.68 Est Glomerular Filtrat Rate mL/min > 60 Glucose Level 109 Calcium Level 8.3 L Magnesium Level 1.9 Total Bilirubin 0.7 Direct Bilirubin 0.10 Indirect Bilirubin 0.6 Aspartate Amino Transf (AST/SGOT) 66 H Alanine Aminotransferase (ALT/SGPT) 175 H Alkaline Phosphatase 263 H Total Protein 5.9 L Albumin 3.2 L Globulin 2.70 Albumin/Globulin Ratio 1.18 Lipase 427 H Subjective 24 Hr Interval Summary Free Text/Dictation Patient upset this am since has not eaten since . Discussed if she was having any abdominal pain she should remain NPO. Stated she did not have any pain and diet was advanced with plans for outpatient follow up with Gen surgery. Patient admitted to pain following eating and changed to clear diet. Exam/Review of Systems Exam Vitals Vital Signs Date Temp Pulse Resp B/P (MAP) Pulse Ox O2 O2 Flow FiO2 Time Delivery Rate 12/06/18 97.8 78 18 137/73 96 14:26 (94) 12/03/18 Room Air 10:35 Intake and Output 12/05/18 12/05/18 12/06/18 1515:00 23:00 07:00 IntakeIntake Total 650 ml 1100 ml 1200 ml BalanceBalance 650 ml 1100 ml 1200 ml Exam General: Patient is laying in bed and answers questions appropriately Eyes: EOMI, pupils reactive to light Neck: Supple Respiratory: Clear to auscultation bilaterally. no wheezing Cardiovascular: regular rate and rhythm, no obvious murmurs Gastrointestinal: soft, mild epigastric tenderness, nondistended, bowel sounds heard. Ext: Moves all extremities spontaneously Skin: No new skin lesions Results Results 24hrs Laboratory Tests Test 12/06/18 05:08 White Blood Count 7.4 # Red Blood Count 3.55 L Hemoglobin 9.9 L Hematocrit 30.6 L Mean Corpuscular Volume 86.2 Mean Corpuscular Hemoglobin 27.9 L Mean Corpuscular Hemoglobin Concent 32.4 Red Cell Distribution Width 15.9 H Platelet Count 249 Mean Platelet Volume 11.6 H Immature Granulocytes % 0.700 H Neutrophils % 70.0 Lymphocytes % 15.7 Monocytes % 8.6 Eosinophils % 4.6 Basophils % 0.4 Nucleated Red Blood Cells % 0.0 Immature Granulocytes # 0.050 H Neutrophils # 5.2 Lymphocytes # 1.2 Monocytes # 0.6 Eosinophils # 0.3 Basophils # 0.0 Nucleated Red Blood Cells # 0.0 Sodium Level 141 Potassium Level 3.8 Chloride Level 110 Carbon Dioxide Level 24 Anion Gap 7 Blood Urea Nitrogen 3 L Creatinine 0.68 Est Glomerular Filtrat Rate mL/min > 60 Glucose Level 109 Calcium Level 8.3 L Magnesium Level 1.9 Total Bilirubin 0.7 Direct Bilirubin 0.10 Indirect Bilirubin 0.6 Aspartate Amino Transf (AST/SGOT) 66 H Alanine Aminotransferase (ALT/SGPT) 175 H Alkaline Phosphatase 263 H Total Protein 5.9 L Albumin 3.2 L Globulin 2.70 Albumin/Globulin Ratio 1.18 Lipase 427 H Medications Medication Current Medications Ondansetron HCl (Zofran Inj) 4 mg Q6H PRN IV NAUSEA/VOMITING Last administered on 12/06/18 05:48; Admin Dose 4 MG; Start 12/03/18 at 11:30 Zolpidem Tartrate (Ambien) 5 mg QHS PRN PO .INSOMNIA; Start 12/03/18 at 11:30 Lorazepam (Ativan) 0.5 mg Q8H PRN PO ANXIETY; Start 12/03/18 at 11:30 Piperacillin Sod/ Tazobactam Sod 100 ml @ 200 mls/hr Q6 IVPB Last administered on 12/06/18at 13:31; Admin Dose 200 MLS/HR; Start 12/04/18 at 10:00 Famotidine (Pepcid Iv) 20 mg Q12H IV Last administered on 12/06/18 08:49; Admin Dose 20 MG; Start 12/05/18 at 09:00 Potassium Chloride/Dextrose/ Sod Cl 1,000 ml @ 60 mls/hr [id number] IV Last administered on 12/06/18 15:08; Admin Dose 125 MLS/HR; Start 12/04/18 at 13:00 Tramadol HCl (Ultram) 50 mg Q6H PRN PO MODERATE PAIN LEVEL 4-6; Start 12/06/18 at 11:00 Morphine Sulfate (morphine) 2 mg Q4H PRN IV SEVERE PAIN LEVEL 7-10; Start 12/06/18 at 16:00 Polyethylene Glycol (Miralax) 17 gm DAILY PO ; Start 12/07/18 at 09:00 Duloxetine HCl (Cymbalta) 60 mg DAILY PO Last administered on 12/06/18 16:34; Admin Dose 60 MG; Start 12/06/18 at 16:00 TRINY CHRISTIE MD December 06, 2018 17:56
[2018-12-06 20:17] VITALS: BP 179/82; PULSE 55; RESP 16
[2018-12-06 20:40] VITALS: BP 145/90; PULSE 53; RESP 18
[2018-12-07] VITALS (11 sets, daily range): BP systolic 135–157; BP diastolic 70–75; PULSE 44–71; RESP 18–20
[2018-12-07] MEDS: PIPER-TAZO 3.375 GM IV (PMX) 100 ML IVPB SCH ×5 (00:03→23:09)
[2018-12-07] MEDS ORDERED: ATROPINE 1 MG/10 ML SYRINGE IV PRN (04:30)
[2018-12-07] MEDS: FAMOTIDINE 20 MG INJ IV SCH ×2 (08:25→20:41)
[2018-12-07] MEDS: ONDANSETRON 4 MG INJ IV PRN (08:25)
[2018-12-07] MEDS ORDERED: METOCLOPRAMIDE 10 MG INJ IV PRN (09:00)
[2018-12-07] MEDS ORDERED: POLYETHYLENE GLYCOL 17 GM PACKET PO PRN (09:00)
[2018-12-07] MEDS ORDERED: POLYETHYLENE GLYCOL 17 GM PACKET PO SCH (09:00)
[2018-12-07] MEDS: D5W-0.45 NACL + KCL 10 MEQ 1,000 ML IV SCH (10:27)
--- NOTE | 2018-12-07 10:58 | PN ---
Date/Time of Note Date/Time of Note DATE: 12/07/18 TIME: 10:58 Assessment/Plan VTE Prophylaxis Risk score (from Ns)>0 risk: 2 SCD applied (from Ns): Yes Pharmacological prophylaxis: NA/contraindicated Pharm contraindication: low risk/ambulating Lines/Catheters IV Catheter Type (from Nrs): Peripheral IV Urinary Cath still in place: No Assessment/Plan Assessment/Plan 1. Acute gallstone pancreatitis - repeat US shows no CBD dilation - lipase still elevated and will change to NPO. Will start on diet once pain improves - continue IVF for now - GI on board and appreciate recommendations. no ERCP at this time - MRCP negative for acute choledocholithiasis 2. Cholelithiasis - Gen surgery consultation appreciated. will need acute pancreatitis to resolve prior to inpt vs outpatient lap daisy - LFTs trending down - HIDA scan negative 3. Transaminitis - improving 4. Depression with anxiety - Continue Cymbalta 5. Dyslipidemia - Continue home meds with able 6. Disposition - will change to NPO and monitor for improvement in abdominal pain. Result Diagram: 12/07/18 0455 12/07/18 0455 Results 24hrs Laboratory Tests Test 12/07/18 04:55 White Blood Count 7.4 Red Blood Count 3.42 L Hemoglobin 9.6 L Hematocrit 29.3 L Mean Corpuscular Volume 85.7 Mean Corpuscular Hemoglobin 28.1 L Mean Corpuscular Hemoglobin Concent 32.8 Red Cell Distribution Width 15.6 H Platelet Count 255 Mean Platelet Volume 11.5 H Immature Granulocytes % 0.800 H Neutrophils % 60.2 Lymphocytes % 20.9 Monocytes % 12.7 H Eosinophils % 4.6 Basophils % 0.8 Nucleated Red Blood Cells % 0.0 Immature Granulocytes # 0.060 H Neutrophils # 4.4 Lymphocytes # 1.5 Monocytes # 0.9 Eosinophils # 0.3 Basophils # 0.1 Nucleated Red Blood Cells # 0.0 Sodium Level 142 Potassium Level 3.8 Chloride Level 110 Carbon Dioxide Level 24 Anion Gap 8 Blood Urea Nitrogen 4 L Creatinine 0.71 Est Glomerular Filtrat Rate mL/min > 60 Glucose Level 105 Calcium Level 8.8 Magnesium Level 1.9 Total Bilirubin 0.6 Direct Bilirubin 0.00 Indirect Bilirubin 0.6 Aspartate Amino Transf (AST/SGOT) 46 Alanine Aminotransferase (ALT/SGPT) 126 H Alkaline Phosphatase 245 H Creatine Kinase 684 H Creatine Kinase Index 0.1 Creatinine Kinase MB (Mass) 0.81 Troponin I < 0.012 Total Protein 5.5 L Albumin 2.9 L Globulin 2.60 Albumin/Globulin Ratio 1.11 Lipase 488 H Subjective 24 Hr Interval Summary Free Text/Dictation Patient still with abdominal discomfort and nausea. Has not been taking in any liquids due to the discomfort. Denies any vomiting. Exam/Review of Systems Exam Vitals Vital Signs Date Temp Pulse Resp B/P (MAP) Pulse Ox O2 O2 Flow FiO2 Time Delivery Rate 12/07/18 44 09:32 12/07/18 98.7 18 142/75 97 07:30 (97) 12/03/18 Room Air 10:35 Intake and Output 12/06/18 12/06/18 12/07/18 1515:00 23:00 07:00 IntakeIntake Total 1340 ml 225 ml 100 ml BalanceBalance 1340 ml 225 ml 100 ml Exam General: Patient is laying in bed and answers questions appropriately Eyes: EOMI, pupils reactive to light Neck: Supple Respiratory: Clear to auscultation bilaterally. no wheezing Cardiovascular: regular rate and rhythm, no obvious murmurs Gastrointestinal: soft, mild epigastric discomfort, nondistended, bowel sounds heard. Ext: Moves all extremities spontaneously Skin: No new skin lesions Results Results 24hrs Laboratory Tests Test 12/07/18 04:55 White Blood Count 7.4 Red Blood Count 3.42 L Hemoglobin 9.6 L Hematocrit 29.3 L Mean Corpuscular Volume 85.7 Mean Corpuscular Hemoglobin 28.1 L Mean Corpuscular Hemoglobin Concent 32.8 Red Cell Distribution Width 15.6 H Platelet Count 255 Mean Platelet Volume 11.5 H Immature Granulocytes % 0.800 H Neutrophils % 60.2 Lymphocytes % 20.9 Monocytes % 12.7 H Eosinophils % 4.6 Basophils % 0.8 Nucleated Red Blood Cells % 0.0 Immature Granulocytes # 0.060 H Neutrophils # 4.4 Lymphocytes # 1.5 Monocytes # 0.9 Eosinophils # 0.3 Basophils # 0.1 Nucleated Red Blood Cells # 0.0 Sodium Level 142 Potassium Level 3.8 Chloride Level 110 Carbon Dioxide Level 24 Anion Gap 8 Blood Urea Nitrogen 4 L Creatinine 0.71 Est Glomerular Filtrat Rate mL/min > 60 Glucose Level 105 Calcium Level 8.8 Magnesium Level 1.9 Total Bilirubin 0.6 Direct Bilirubin 0.00 Indirect Bilirubin 0.6 Aspartate Amino Transf (AST/SGOT) 46 Alanine Aminotransferase (ALT/SGPT) 126 H Alkaline Phosphatase 245 H Creatine Kinase 684 H Creatine Kinase Index 0.1 Creatinine Kinase MB (Mass) 0.81 Troponin I < 0.012 Total Protein 5.5 L Albumin 2.9 L Globulin 2.60 Albumin/Globulin Ratio 1.11 Lipase 488 H Medications Medication Current Medications Ondansetron HCl (Zofran Inj) 4 mg Q6H PRN IV NAUSEA/VOMITING Last administered on 12/07/18at 08:25; Admin Dose 4 MG; Start 12/03/18 at 11:30 Zolpidem Tartrate (Ambien) 5 mg QHS PRN PO .INSOMNIA; Start 12/03/18 at 11:30 Lorazepam (Ativan) 0.5 mg Q8H PRN PO ANXIETY; Start 12/03/18 at 11:30 Piperacillin Sod/ Tazobactam Sod 100 ml @ 200 mls/hr Q6 IVPB Last administered on 12/07/18at 06:00; Admin Dose 200 MLS/HR; Start 12/04/18 at 10:00 Famotidine (Pepcid Iv) 20 mg Q12H IV Last administered on 12/07/18at 08:25; A dmin Dose 20 MG; Start 12/05/18 at 09:00 Potassium Chloride/Dextrose/ Sod Cl 1,000 ml @ 60 mls/hr [id number] IV Last administered on 12/07/18at 10:27; Admin Dose 60 MLS/HR; Start 12/04/18 at 13:00 Tramadol HCl (Ultram) 50 mg Q6H PRN PO MODERATE PAIN LEVEL 4-6; Start 12/06/18 at 11:00 Duloxetine HCl (Cymbalta) 60 mg DAILY PO Last administered on 12/06/18at 16:34; Admin Dose 60 MG; Start 12/06/18 at 16:00; Status Hold Atropine Sulfate (Atropine (Syringe)) 0.5 mg PRN PRN IV bradycardia; Start 11/24 11/12 at 04:30 Polyethylene Glycol (Miralax) 17 gm DAILY PRN PO constipation; Start 12/07/18 at 09:00 Metoclopramide HCl (Reglan) 10 mg Q4H PRN IV nausea; Start 12/07/18 at 09:00 TRINY CHRISTIE MD December 07, 2018 10:58
--- NOTE | 2018-12-07 11:01 | PN ---
Date/Time of Note Date/Time of Note DATE: 12/07/18 TIME: 10:52 Assessment/Plan Lines/Catheters IV Catheter Type (from [facility]): Peripheral IV Pascal in Place (from [facility]): No Assessment/Plan Chief Complaint/Hosp Course 1. Pancreatitis: Lipase uptick from yesterday -IV fluids -Clear liquids okay once abdominal pain/nausea/dry heaving is improved 2. Abdominal pain with concern for cholecystitis, cholelithiasis: HIDA negative -Pain management -Eventual cholecystectomy once #1 resolved; inpatient versus outpatient 3. Leukocytosis: Resolved 4. Hypochromic anemia: -Monitor and transfuse as needed 5. Transaminitis: Improving -As above 6. Hypoalbuminemia: Likely multifactorial -Treat infections -Eventual nutrition optimization 7.Depression -Psychiatric optimization 8. Dyslipidemia -Highly encouraged weight loss -Medical management 9. Obesity BMI: 32 -diet and exercise optimization -encourage weight loss Thank you. Patient seen and examined in collaboration with Dr. Viktor Rice. Subjective 24 Hr Interval Summary Nausea, dry heaving, abdominal discomfort yesterday. Reportedly ate solid food yesterday. Lipase uptick. No fevers, chills, sob, congested cough, cp, palpitations, san, dizziness, diarrhea, dysuria. Exam/Review of Systems Vital Signs Vitals Vital Signs Date Temp Pulse Resp B/P (MAP) Pulse Ox O2 O2 Flow FiO2 Time Delivery Rate 12/07/18 44 09:32 12/07/18 98.7 18 142/75 97 07:30 (97) 12/03/18 Room Air 10:35 Intake and Output 12/06/18 12/06/18 12/07/18 1515:00 23:00 07:00 IntakeIntake Total 1340 ml 225 ml 100 ml BalanceBalance 1340 ml 225 ml 100 ml Exam Constitutional: alert, oriented, well developed Psych: anxiety Head: normocephalic, atraumatic Eyes: nl conjunctiva, EOMI, nl lids, nl sclera ENMT: nl external ears & nose, nl lips & teeth, mucosa pink and moist Neck: supple, non-tender; No jvd Respiratory: normal air movement; No congested cough Cardiovascular: regular rate and rhythm, nl pulses; No edema Gastrointestinal: soft, distended (Minimal), tender (Bilateral upper quadrants) Genitourinary - Female: nl external genitalia Musculoskeletal: nl extremities to inspection; No nl gait and stance Extremities: normal pulses Neurological: nl mental status, nl speech, nl strength Skin: No rash or lesions Results Result Diagram: 12/07/18 0455 12/07/18 0455 RANJAN HIGGINS NP December 07, 2018 11:01
--- NOTE | 2018-12-07 13:30 | PN ---
Date/Time of Note Date/Time of Note DATE: 12/07/18 TIME: 13:17 Assessment/Plan VTE Prophylaxis Risk score (from Nsg)>0 risk: 2 SCD applied (from Nsg): Yes Pharmacological prophylaxis: other (scds) Lines/Catheters IV Catheter Type (from Nrsg): Peripheral IV Urinary Cath still in place: No Assessment/Plan Hospital Course Assessment/Plan Abdominal pain likely secondary to acute cholecystitis -HIDA scan -No scintigraphic evidence to suggest the presence of common bile or cystic ducts obstruction. Transaminitis- trending down -MRCP-No evidence of biliary ductal dilatation or choledocholithiasis of the visualized common bile duct. -Gallbladder wall thickening suggestive of acute cholecystitis Leukocytosis- resolved History of GERD Elevate lipase- normal amylase -abd us- - Cholelithiasis with mild gallbladder wall thickening and trace pericholecystic fluid without biliary tree dilatation. Mild hepatomegaly Depression History of bariatric surgery Plan: Change diet to NPO No plan for ERCP at this time Abd us- reviewed Supportive care with pain medications as needed. Monitor LFT's- trending down F/u with surgical recommendations Patient seen in collaboration with Dr. Crawford. Subjective: Pt states MiraLAX given her diarrhea- and she refuses to take, she did have x1 loose stool yesterday and is passing gas. Abdominal pain is described as a dull ache- and improved from admission. We will continue supportive care. PHYSICAL EXAMINATION: GENERAL: Well developed, well nourished, alert & oriented x 3, in no acute distress SKIN: No lesions HEAD: Normocephalic, atraumatic, no tenderness. EYES: Pupils equal reactive to light, non-icteric, no discharge. EARS/NOSE AND THROAT: Ears normal, nose normal. NECK: Supple, no masses CHEST: Inspection within normal limits. CARDIOVASCULAR: Heart: Regular rate and rhythm RESPIRATORY: Lungs clear to auscultation GASTROINTESTINAL AND LIVER: Abdomen: Soft, upper/mid abdominal pain, non- distended, no hernias, normoactive bowel sounds. Rectal: Deferred. EXTREMITIES: No cyanosis, clubbing or edema. Result Diagram: 12/07/18 0455 12/07/18 0455 Results 24hrs Laboratory Tests Test 12/07/18 04:55 12/07/18 10:11 White Blood Count 7.4 Red Blood Count 3.42 L Hemoglobin 9.6 L Hematocrit 29.3 L Mean Corpuscular Volume 85.7 Mean Corpuscular Hemoglobin 28.1 L Mean Corpuscular Hemoglobin Concent 32.8 Red Cell Distribution Width 15.6 H Platelet Count 255 Mean Platelet Volume 11.5 H Immature Granulocytes % 0.800 H Neutrophils % 60.2 Lymphocytes % 20.9 Monocytes % 12.7 H Eosinophils % 4.6 Basophils % 0.8 Nucleated Red Blood Cells % 0.0 Immature Granulocytes # 0.060 H Neutrophils # 4.4 Lymphocytes # 1.5 Monocytes # 0.9 Eosinophils # 0.3 Basophils # 0.1 Nucleated Red Blood Cells # 0.0 Sodium Level 142 Potassium Level 3.8 Chloride Level 110 Carbon Dioxide Level 24 Anion Gap 8 Blood Urea Nitrogen 4 L Creatinine 0.71 Est Glomerular Filtrat Rate mL/min > 60 Glucose Level 105 Calcium Level 8.8 Magnesium Level 1.9 Total Bilirubin 0.6 Direct Bilirubin 0.00 Indirect Bilirubin 0.6 Aspartate Amino Transf (AST/SGOT) 46 Alanine Aminotransferase (ALT/SGPT) 126 H Alkaline Phosphatase 245 H Creatine Kinase 684 H 552 H Creatine Kinase Index 0.1 0.1 Creatinine Kinase MB (Mass) 0.81 0.81 Troponin I < 0.012 < 0.012 Total Protein 5.5 L Albumin 2.9 L Globulin 2.60 Albumin/Globulin Ratio 1.11 Lipase 488 H Amylase Level 73 Exam/Review of Systems Exam Vitals Vital Signs Date Temp Pulse Resp B/P (MAP) Pulse Ox O2 O2 Flow FiO2 Time Delivery Rate 12/07/18 47 12:20 12/07/18 98.2 18 149/75 96 12:06 (99) 12/03/18 Room Air 10:35 Intake and Output 12/06/18 12/06/18 12/07/18 1515:00 23:00 07:00 IntakeIntake Total 1340 ml 225 ml 100 ml BalanceBalance 1340 ml 225 ml 100 ml Results Results 24hrs Laboratory Tests Test 12/07/18 04:55 12/07/18 10:11 White Blood Count 7.4 Red Blood Count 3.42 L Hemoglobin 9.6 L Hematocrit 29.3 L Mean Corpuscular Volume 85.7 Mean Corpuscular Hemoglobin 28.1 L Mean Corpuscular Hemoglobin Concent 32.8 Red Cell Distribution Width 15.6 H Platelet Count 255 Mean Platelet Volume 11.5 H Immature Granulocytes % 0.800 H Neutrophils % 60.2 Lymphocytes % 20.9 Monocytes % 12.7 H Eosinophils % 4.6 Basophils % 0.8 Nucleated Red Blood Cells % 0.0 Immature Granulocytes # 0.060 H Neutrophils # 4.4 Lymphocytes # 1.5 Monocytes # 0.9 Eosinophils # 0.3 Basophils # 0.1 Nucleated Red Blood Cells # 0.0 Sodium Level 142 Potassium Level 3.8 Chloride Level 110 Carbon Dioxide Level 24 Anion Gap 8 Blood Urea Nitrogen 4 L Creatinine 0.71 Est Glomerular Filtrat Rate mL/min > 60 Glucose Level 105 Calcium Level 8.8 Magnesium Level 1.9 Total Bilirubin 0.6 Direct Bilirubin 0.00 Indirect Bilirubin 0.6 Aspartate Amino Transf (AST/SGOT) 46 Alanine Aminotransferase (ALT/SGPT) 126 H Alkaline Phosphatase 245 H Creatine Kinase 684 H 552 H Creatine Kinase Index 0.1 0.1 Creatinine Kinase MB (Mass) 0.81 0.81 Troponin I < 0.012 < 0.012 Total Protein 5.5 L Albumin 2.9 L Globulin 2.60 Albumin/Globulin Ratio 1.11 Lipase 488 H Amylase Level 73 Medications Medication Current Medications Ondansetron HCl (Zofran Inj) 4 mg Q6H PRN IV NAUSEA/VOMITING Last administered on 12/07/18at 08:25; Admin Dose 4 MG; Start 12/03/18 at 11:30 Zolpidem Tartrate (Ambien) 5 mg QHS PRN PO .INSOMNIA; Start 12/03/18 at 11:30 Lorazepam (Ativan) 0.5 mg Q8H PRN PO ANXIETY; Start 12/03/18 at 11:30 Piperacillin Sod/ Tazobactam Sod 100 ml @ 200 mls/hr Q6 IVPB Last administered on 12/07/18at 11:55; Admin Dose 200 MLS/HR; Start 12/04/18 at 10:00 Famotidine (Pepcid Iv) 20 mg Q12H IV Last administered on 12/07/18at 08:25; Admin Dose 20 MG; Start 12/05/18 at 09:00 Potassium Chloride/Dextrose/ Sod Cl 1,000 ml @ 60 mls/hr [id number] IV Last administered on 12/07/18at 10:27; Admin Dose 60 MLS/HR; Start 12/04/18 at 13:00 Tramadol HCl (Ultram) 50 mg Q6H PRN PO MODERATE PAIN LEVEL 4-6; Start 12/06/18 at 11:00 Duloxetine HCl (Cymbalta) 60 mg DAILY PO Last administered on 12/06/18at 16:34; Admin Dose 60 MG; Start 12/06/18 at 16:00; Status Hold Atropine Sulfate (Atropine (Syringe)) 0.5 mg PRN PRN IV bradycardia; Start 12/07/18 at 04:30 Polyethylene Glycol (Miralax) 17 gm DAILY PRN PO constipation; Start 12/07/18 at 09:00 Metoclopramide HCl (Reglan) 10 mg Q4H PRN IV nausea; Start 12/07/18 at 09:00 FABRICE GAYTAN December 07, 2018 13:27
--- NOTE | 2018-12-07 20:27 | RADRPT ---
Vent Rate: 47 bpm RR Interval: 1288 msec HI Interval: 148 msec QRS Duration: 77 msec QT Interval: 473 msec QTC Interval: 417 msec P-R-T [place]: 11 - 21 - 30 degrees Sinus bradycardia...rate< 50 Low voltage, precordial leads...precordial leads <1.0mV Electronically Signed By: Chace Burr
[2018-12-08] VITALS (11 sets, daily range): BP systolic 136–147; BP diastolic 68–80; PULSE 43–63; RESP 16–20
[2018-12-08] MEDS: D5W-0.45 NACL + KCL 10 MEQ 1,000 ML IV SCH ×2 (05:24→17:16)
[2018-12-08] MEDS: PIPER-TAZO 3.375 GM IV (PMX) 100 ML IVPB SCH ×4 (05:25→23:21)
[2018-12-08] MEDS: FAMOTIDINE 20 MG INJ IV SCH ×2 (08:31→20:21)
--- NOTE | 2018-12-08 11:30 | PN ---
Date/Time of Note Date/Time of Note DATE: 12/08/18 TIME: 11:30 Assessment/Plan VTE Prophylaxis Risk score (from Ns)>0 risk: 3 SCD applied (from Ns): Yes Pharmacological prophylaxis: NA/contraindicated Pharm contraindication: low risk/ambulating Lines/Catheters IV C[facility]ter Type (from [facility]): Peripheral IV Urinary Cath still in place: No Assessment/Plan Assessment/Plan 1. Acute gallstone pancreatitis - lipase still elevated this am. Will increase IV fluids and monitor pain levels - GI on board and appreciate recommendations. no ERCP at this time - MRCP negative for acute choledocholithiasis 2. Cholelithiasis - Gen surgery consultation appreciated. will need acute pancreatitis to resolve prior to inpt vs outpatient lap daisy - LFTs trending down - HIDA scan negative 3. Transaminitis - resolving 4. Depression with anxiety - Continue Cymbalta 5. Dyslipidemia - Continue home meds with able 6. Disposition - Will increased IVF today. If abdominal pain resolves and lipase trending down, will resume diet and advance as tolerated Result Diagram: 12/08/18 0626 12/08/18 0626 Results 24hrs Laboratory Tests Test 12/08/18 06:26 White Blood Count 7.5 Red Blood Count 3.29 L Hemoglobin 9.1 L Hematocrit 27.6 L Mean Corpuscular Volume 83.9 Mean Corpuscular Hemoglobin 27.7 L Mean Corpuscular Hemoglobin Concent 33.0 Red Cell Distribution Width 15.7 H Platelet Count 285 Mean Platelet Volume 11.6 H Immature Granulocytes % 1.200 H Neutrophils % 58.7 Lymphocytes % 22.0 Monocytes % 12.8 H Eosinophils % 4.4 Basophils % 0.9 Nucleated Red Blood Cells % 0.0 Immature Granulocytes # 0.090 H Neutrophils # 4.4 Lymphocytes # 1.7 Monocytes # 1.0 H Eosinophils # 0.3 Basophils # 0.1 Nucleated Red Blood Cells # 0.0 Sodium Level 142 Potassium Level 3.7 Chloride Level 112 H Carbon Dioxide Level 23 Anion Gap 7 Blood Urea Nitrogen 4 L Creatinine 0.70 Est Glomerular Filtrat Rate mL/min > 60 Glucose Level 109 Calcium Level 8.6 Magnesium Level 1.8 Total Bilirubin 0.6 Direct Bilirubin 0.00 Indirect Bilirubin 0.6 Aspartate Amino Transf (AST/SGOT) 32 Alanine Aminotransferase (ALT/SGPT) 87 H Alkaline Phosphatase 232 H Total Protein 5.3 L Albumin 2.9 L Globulin 2.40 Albumin/Globulin Ratio 1.20 Lipase 523 H Subjective 24 Hr Interval Summary Free Text/Dictation Patient states shes feeling relief after having a BM this am. Epigastric pain has improved as well. Per Nursing, bradycardic overnight but per patient asymptomatic Exam/Review of Systems Exam Vitals Vital Signs Date Temp Pulse Resp B/P (MAP) Pulse Ox O2 O2 Flow FiO2 Time Delivery Rate 12/08/18 98.3 57 16 147/80 97 11:22 (102) Intake and Output 12/07/18 12/07/18 12/08/18 1515:00 23:00 07:00 IntakeIntake Total 1100 ml 1350 ml 750 ml BalanceBalance 1100 ml 1350 ml 750 ml Exam General: Patient is laying in bed and answers questions appropriately Eyes: EOMI, pupils reactive to light Neck: Supple Respiratory: Clear to auscultation bilaterally. no wheezing Cardiovascular: regular rate and rhythm, no obvious murmurs Gastrointestinal: soft, minimal epigastric discomfort, nondistended, bowel sounds heard. Ext: Moves all extremities spontaneously Skin: No new skin lesions Results Results 24hrs Laboratory Tests Test 12/08/18 06:26 White Blood Count 7.5 Red Blood Count 3.29 L Hemoglobin 9.1 L Hematocrit 27.6 L Mean Corpuscular Volume 83.9 Mean Corpuscular Hemoglobin 27.7 L Mean Corpuscular Hemoglobin Concent 33.0 Red Cell Distribution Width 15.7 H Platelet Count 285 Mean Platelet Volume 11.6 H Immature Granulocytes % 1.200 H Neutrophils % 58.7 Lymphocytes % 22.0 Monocytes % 12.8 H Eosinophils % 4.4 Basophils % 0.9 Nucleated Red Blood Cells % 0.0 Immature Granulocytes # 0.090 H Neutrophils # 4.4 Lymphocytes # 1.7 Monocytes # 1.0 H Eosinophils # 0.3 Basophils # 0.1 Nucleated Red Blood Cells # 0.0 Sodium Level 142 Potassium Level 3.7 Chloride Level 112 H Carbon Dioxide Level 23 Anion Gap 7 Blood Urea Nitrogen 4 L Creatinine 0.70 Est Glomerular Filtrat Rate mL/min > 60 Glucose Level 109 Calcium Level 8.6 Magnesium Level 1.8 Total Bilirubin 0.6 Direct Bilirubin 0.00 Indirect Bilirubin 0.6 Aspartate Amino Transf (AST/SGOT) 32 Alanine Aminotransferase (ALT/SGPT) 87 H Alkaline Phosphatase 232 H Total Protein 5.3 L Albumin 2.9 L Globulin 2.40 Albumin/Globulin Ratio 1.20 Lipase 523 H Medications Medication Current Medications Ondansetron HCl (Zofran Inj) 4 mg Q6H PRN IV NAUSEA/VOMITING Last administered on 12/07/18 08:25; Admin Dose 4 MG; Start 12/03/18 at 11:30 Zolpidem Tartrate (Ambien) 5 mg QHS PRN PO .INSOMNIA; Start 12/03/18 at 11:30 Lorazepam (Ativan) 0.5 mg Q8H PRN PO ANXIETY; Start 12/03/18 at 11:30 Piperacillin Sod/ Tazobactam Sod 100 ml @ 200 mls/hr Q6 IVPB Last administered on 12/08/18 05:25; Admin Dose 200 MLS/HR; Start 12/04/18 at 10:00 Famotidine (Pepcid Iv) 20 mg Q12H IV Last administered on 12/08/18at 08:31; Admin Dose 20 MG; Start 12/05/18 at 09:00 Potassium Chloride/Dextrose/ Sod Cl 1,000 ml @ 100 mls/hr Q10H IV Last administered on 12/08/18 05:24; Admin Dose 60 MLS/HR; Start 12/04/18 at 13:00 Tramadol HCl (Ultram) 50 mg Q6H PRN PO MODERATE PAIN LEVEL 4-6; Start 12/06/18 at 11:00 Duloxetine HCl (Cymbalta) 60 mg DAILY PO Last administered on 12/06/18at 16:34; Admin Dose 60 MG; Start 12/06/18 at 16:00; Status Hold Atropine Sulfate (Atropine (Syringe)) 0.5 mg PRN PRN IV bradycardia; Start 12/07/18 at 04:30 Polyethylene Glycol (Miralax) 17 gm DAILY PRN PO constipation; Start 12/07/18 at 09:00 Metoclopramide HCl (Reglan) 10 mg Q4H PRN IV nausea; Start 12/07/18 at 09:00 TRINY CHRISTIE MD December 08, 2018 11:30
--- NOTE | 2018-12-08 15:09 | PN ---
Date/Time of Note Date/Time of Note DATE: 12/08/18 TIME: 15:05 Assessment/Plan VTE Prophylaxis Risk score (from Nsg)>0 risk: 3 SCD applied (from Nsg): Yes Pharmacological prophylaxis: other (scds) Lines/Catheters IV Catheter Type (from Nrsg): Peripheral IV Urinary Cath still in place: No Assessment/Plan Hospital Course Assessment/Plan Abdominal pain likely secondary to acute cholecystitis -HIDA scan -No scintigraphic evidence to suggest the presence of common bile or cystic ducts obstruction. Transaminitis-improving -MRCP-No evidence of biliary ductal dilatation or choledocholithiasis of the visualized common bile duct. -Gallbladder wall thickening suggestive of acute cholecystitis Cholelithiasis Leukocytosis- resolved History of GERD Elevate lipase- normal amylase -Abd us- - Cholelithiasis with mild gallbladder wall thickening and trace pericholecystic fluid without biliary tree dilatation. The visualized portions of the pancreas are unremarkable with obscuration of the tail of the pancreas Mild hepatomegaly Depression History of bariatric surgery Plan: NPO- if no abd pain tomorrow will start cl liq diet No plan for ERCP at this time F/u surgical recommendations Lipase elevated with a normal amylase Patient seen in collaboration with Dr. Crawford. Subjective: Patient states she has had x2 BM, with some improvement in abd pain. No c/o n/v, patient has not received pain medication today, despite an increase in lipase, pt feels better Will continue close observation. PHYSICAL EXAMINATION: GENERAL: Well developed, well nourished, alert & oriented x 3, in no acute distress SKIN: No lesions HEAD: Normocephalic, atraumatic, no tenderness. EYES: Pupils equal reactive to light, non-icteric, no discharge. EARS/NOSE AND THROAT: Ears normal, nose normal. NECK: Supple, no masses CHEST: Inspection within normal limits. CARDIOVASCULAR: Heart: Regular rate and rhythm RESPIRATORY: Lungs clear to auscultation GASTROINTESTINAL AND LIVER: Abdomen: Soft, upper/mid abdominal pain- improved, non-distended, no hernias, normoactive bowel sounds. Rectal: Deferred. EXTREMITIES: No cyanosis, clubbing or edema. Result Diagram: 12/08/18 0626 12/08/18 0626 Results 24hrs Laboratory Tests Test 12/08/18 06:26 White Blood Count 7.5 Red Blood Count 3.29 L Hemoglobin 9.1 L Hematocrit 27.6 L Mean Corpuscular Volume 83.9 Mean Corpuscular Hemoglobin 27.7 L Mean Corpuscular Hemoglobin Concent 33.0 Red Cell Distribution Width 15.7 H Platelet Count 285 Mean Platelet Volume 11.6 H Immature Granulocytes % 1.200 H Neutrophils % 58.7 Lymphocytes % 22.0 Monocytes % 12.8 H Eosinophils % 4.4 Basophils % 0.9 Nucleated Red Blood Cells % 0.0 Immature Granulocytes # 0.090 H Neutrophils # 4.4 Lymphocytes # 1.7 Monocytes # 1.0 H Eosinophils # 0.3 Basophils # 0.1 Nucleated Red Blood Cells # 0.0 Sodium Level 142 Potassium Level 3.7 Chloride Level 112 H Carbon Dioxide Level 23 Anion Gap 7 Blood Urea Nitrogen 4 L Creatinine 0.70 Est Glomerular Filtrat Rate mL/min > 60 Glucose Level 109 Calcium Level 8.6 Magnesium Level 1.8 Total Bilirubin 0.6 Direct Bilirubin 0.00 Indirect Bilirubin 0.6 Aspartate Amino Transf (AST/SGOT) 32 Alanine Aminotransferase (ALT/SGPT) 87 H Alkaline Phosphatase 232 H Total Protein 5.3 L Albumin 2.9 L Globulin 2.40 Albumin/Globulin Ratio 1.20 Lipase 523 H Exam/Review of Systems Exam Vitals Vital Signs Date Temp Pulse Resp B/P (MAP) Pulse Ox O2 O2 Flow FiO2 Time Delivery Rate 12/08/18 47 14:23 12/08/18 98.3 16 147/80 97 11:22 (102) Intake and Output 12/07/18 12/07/18 12/08/18 1515:00 23:00 07:00 IntakeIntake Total 1100 ml 1350 ml 750 ml BalanceBalance 1100 ml 1350 ml 750 ml Results Results 24hrs Laboratory Tests Test 12/08/18 06:26 White Blood Count 7.5 Red Blood Count 3.29 L Hemoglobin 9.1 L Hematocrit 27.6 L Mean Corpuscular Volume 83.9 Mean Corpuscular Hemoglobin 27.7 L Mean Corpuscular Hemoglobin Concent 33.0 Red Cell Distribution Width 15.7 H Platelet Count 285 Mean Platelet Volume 11.6 H Immature Granulocytes % 1.200 H Neutrophils % 58.7 Lymphocytes % 22.0 Monocytes % 12.8 H Eosinophils % 4.4 Basophils % 0.9 Nucleated Red Blood Cells % 0.0 Immature Granulocytes # 0.090 H Neutrophils # 4.4 Lymphocytes # 1.7 Monocytes # 1.0 H Eosinophils # 0.3 Basophils # 0.1 Nucleated Red Blood Cells # 0.0 Sodium Level 142 Potassium Level 3.7 Chloride Level 112 H Carbon Dioxide Level 23 Anion Gap 7 Blood Urea Nitrogen 4 L Creatinine 0.70 Est Glomerular Filtrat Rate mL/min > 60 Glucose Level 109 Calcium Level 8.6 Magnesium Level 1.8 Total Bilirubin 0.6 Direct Bilirubin 0.00 Indirect Bilirubin 0.6 Aspartate Amino Transf (AST/SGOT) 32 Alanine Aminotransferase (ALT/SGPT) 87 H Alkaline Phosphatase 232 H Total Protein 5.3 L Albumin 2.9 L Globulin 2.40 Albumin/Globulin Ratio 1.20 Lipase 523 H Medications Medication Current Medications Ondansetron HCl (Zofran Inj) 4 mg Q6H PRN IV NAUSEA/VOMITING Last administered on 12/07/18 08:25; Admin Dose 4 MG; Start 12/03/18 at 11:30 Zolpidem Tartrate (Ambien) 5 mg QHS PRN PO .INSOMNIA; Start 12/03/18 at 11:30 Lorazepam (Ativan) 0.5 mg Q8H PRN PO ANXIETY; Start 12/03/18 at 11:30 Piperacillin Sod/ Tazobactam Sod 100 ml @ 200 mls/hr Q6 IVPB Last administered on 12/08/18at 12:24; Admin Dose 200 MLS/HR; Start 12/04/18 at 10:00 Famotidine (Pepcid Iv) 20 mg Q12H IV Last administered on 12/08/18 08:31; Admin Dose 20 MG; Start 12/05/18 at 09:00 Potassium Chloride/Dextrose/ Sod Cl 1,000 ml @ 100 mls/hr Q10H IV Last administered on 12/08/18 05:24; Admin Dose 60 MLS/HR; Start 12/04/18 at 13:00 Tramadol HCl (Ultram) 50 mg Q6H PRN PO MODERATE PAIN LEVEL 4-6; Start 12/06/18 at 11:00 Duloxetine HCl (Cymbalta) 60 mg DAILY PO Last administered on 12/06/18at 16:34; Admin Dose 60 MG; Start 12/06/18 at 16:00; Status Hold Atropine Sulfate (Atropine (Syringe)) 0.5 mg PRN PRN IV bradycardia; Start 12/07/18 at 04:30 Polyethylene Glycol (Miralax) 17 gm DAILY PRN PO constipation; Start 12/07/18 at 09:00 Metoclopramide HCl (Reglan) 10 mg Q4H PRN IV nausea; Start 12/07/18 at 09:00 FABRICE GAYTAN December 08, 2018 15:09
[2018-12-08] MEDS: ONDANSETRON 4 MG INJ IV PRN (20:21)
[2018-12-09] VITALS (7 sets, daily range): BP systolic 135–147; BP diastolic 69–78; PULSE 45–73; RESP 18–19
--- NOTE | 2018-12-09 01:58 | PN ---
Date/Time of Note Date/Time of Note DATE: 12/06/18 TIME: 21:54 Assessment/Plan Lines/Catheters IV Catheter Type (from [facility]): Peripheral IV Pascal in Place (from [facility]): No Assessment/Plan Chief Complaint/Hosp Course 1. Pancreatitis: Lipase uptick -IV fluids -Clear liquids okay once abdominal pain/nausea/dry heaving is improved 2. Abdominal pain with concern for cholecystitis, cholelithiasis: HIDA negative -Pain management -Eventual cholecystectomy once #1 resolved; inpatient versus outpatient 3. Leukocytosis: Resolved 4. Hypochromic anemia: -Monitor and transfuse as needed 5. Transaminitis: Improving -As above -ERCP per GI 6. Hypoalbuminemia: Likely multifactorial -Treat infections -Eventual nutrition optimization 7. Depression -Psychiatric optimization 8. Dyslipidemia -Highly encouraged weight loss -Medical management 9. Obesity BMI: 32 -diet and exercise optimization -encourage weight loss Thank you Late entry 12/06 Subjective 24 Hr Interval Summary Some abdominal pain with oral intake. Lipase elevated. No fevers, chills, sob, congested cough, cp, palpitations, san, dizziness, diarrhea, dysuria. Exam/Review of Systems Vital Signs Vitals Vital Signs Date Temp Pulse Resp B/P (MAP) Pulse Ox O2 O2 Flow FiO2 Time Delivery Rate 12/09/18 58 00:00 12/08/18 98.4 16 142/73 95 23:58 (96) Intake and Output 12/08/18 12/08/18 12/09/18 1515:00 23:00 07:00 IntakeIntake Total 100 ml 870 ml BalanceBalance 100 ml 870 ml Exam Free Text/Dictation Constitutional: alert, oriented, well developed Psych: anxiety Head: normocephalic, atraumatic Eyes: nl conjunctiva, EOMI, nl lids, nl sclera ENMT: nl external ears & nose, nl lips & teeth, mucosa pink and moist Neck: supple, non-tender; No jvd Respiratory: normal air movement; No congested cough Cardiovascular: regular rate and rhythm, nl pulses; No edema Gastrointestinal: soft, distended (Minimal), tender (Bilateral upper quadrants) Genitourinary - Female: nl external genitalia Musculoskeletal: nl extremities to inspection; No nl gait and stance Extremities: normal pulses Neurological: nl mental status, nl speech, nl strength Skin: No rash or lesions Results Result Diagram: 12/08/18 0626 12/08/18 0626 HCASE DIAL MD December 09, 2018 01:58
--- NOTE | 2018-12-09 02:01 | PN ---
Date/Time of Note Date/Time of Note DATE: 12/08/18 TIME: 21:58 Assessment/Plan Lines/Catheters IV Catheter Type (from [facility]): Peripheral IV Pascal in Place (from [facility]): No Assessment/Plan Chief Complaint/Hosp Course 1. Pancreatitis: -trend -IV fluids 2. Abdominal pain with concern for cholecystitis, cholelithiasis: HIDA negative. Improved. -Pain management -Eventual cholecystectomy once #1 resolved outpatient 3. Leukocytosis: Resolved 4. Hypochromic anemia: -Monitor and transfuse as needed 5. Transaminitis: Improving -As above -ERCP per GI 6. Hypoalbuminemia: Likely multifactorial -Treat infections -Eventual nutrition optimization 7. Depression -Psychiatric optimization 8. Dyslipidemia -Highly encouraged weight loss -Medical management 9. Obesity BMI: 32 -diet and exercise optimization -encourage weight loss Thank you Late entry 12/08 Subjective 24 Hr Interval Summary No pain. Oral intake. Lipase elevated. No fevers, chills, sob, congested cough, cp, palpitations, asn, dizziness, diarrhea, dysuria. Exam/Review of Systems Vital Signs Vitals Vital Signs Date Temp Pulse Resp B/P (MAP) Pulse Ox O2 O2 Flow FiO2 Time Delivery Rate 12/09/18 58 00:00 12/08/18 98.4 16 142/73 95 23:58 (96) Intake and Output 12/08/18 12/08/18 12/09/18 1515:00 23:00 07:00 IntakeIntake Total 100 ml 870 ml BalanceBalance 100 ml 870 ml Exam Free Text/Dictation Constitutional: alert, oriented, well developed Psych: anxiety Head: normocephalic, atraumatic Eyes: nl conjunctiva, EOMI, nl lids, nl sclera ENMT: nl external ears & nose, nl lips & teeth, mucosa pink and moist Neck: supple, non-tender; No jvd Respiratory: normal air movement; No congested cough Cardiovascular: regular rate and rhythm, nl pulses; No edema Gastrointestinal: soft, ND, overweight, NT Genitourinary - Female: nl external genitalia Musculoskeletal: nl extremities to inspection; No nl gait and stance Extremities: normal pulses Neurological: nl mental status, nl speech, nl strength Skin: No rash or lesions Results Result Diagram: 12/08/1862512/08/18625 CHASE DIAL MD December 09, 2018 02:01
[2018-12-09] MEDS: D5W-0.45 NACL + KCL 10 MEQ 1,000 ML IV SCH (04:02)
[2018-12-09] MEDS: PIPER-TAZO 3.375 GM IV (PMX) 100 ML IVPB SCH ×3 (06:00→12:27)
[2018-12-09] MEDS: FAMOTIDINE 20 MG INJ IV SCH (08:00)
--- NOTE | 2018-12-09 12:16 | PN ---
Date/Time of Note Date/Time of Note DATE: 12/09/18 TIME: 12:13 Assessment/Plan VTE Prophylaxis Risk score (from Ns)>0 risk: 2 SCD applied (from Ns): Yes Pharmacological prophylaxis: NA/contraindicated Pharm contraindication: low risk/ambulating Lines/Catheters IV Catheter Type (from [facility]): Peripheral IV Urinary Cath still in place: No Assessment/Plan Assessment/Plan 1. Acute gallstone pancreatitis - patient tolerating PO diet without any pain or nausea - GI on board and appreciate recommendations. no ERCP at this time - MRCP negative for acute choledocholithiasis 2. Cholelithiasis - Gen surgery consultation appreciated. will plan for outpatient surgical intervention - LFTs trending down - HIDA scan negative 3. Transaminitis - resolving 4. Depression with anxiety - Continue Cymbalta 5. Dyslipidemia - Continue home meds with able 6. Disposition - Medically stable for discharge home Result Diagram: 12/09/18 0550 12/09/18 0550 Results 24hrs Laboratory Tests Test 12/09/18 05:50 White Blood Count 9.3 # Red Blood Count 3.44 L Hemoglobin 9.7 L Hematocrit 29.8 L Mean Corpuscular Volume 86.6 Mean Corpuscular Hemoglobin 28.2 L Mean Corpuscular Hemoglobin Concent 32.6 Red Cell Distribution Width 15.9 H Platelet Count 360 # Mean Platelet Volume 11.9 H Immature Granulocytes % 1.200 H Neutrophils % 62.8 Lymphocytes % 22.2 Monocytes % 9.1 Eosinophils % 3.7 Basophils % 1.0 Nucleated Red Blood Cells % 0.0 Immature Granulocytes # 0.110 H Neutrophils # 5.8 Lymphocytes # 2.1 Monocytes # 0.8 Eosinophils # 0.3 Basophils # 0.1 Nucleated Red Blood Cells # 0.0 Sodium Level 144 Potassium Level 3.7 Chloride Level 111 H Carbon Dioxide Level 25 Anion Gap 8 Blood Urea Nitrogen 3 L Creatinine 0.78 Est Glomerular Filtrat Rate mL/min > 60 Glucose Level 129 Calcium Level 8.6 Magnesium Level 2.0 Total Bilirubin 0.5 Direct Bilirubin 0.00 Indirect Bilirubin 0.5 Aspartate Amino Transf (AST/SGOT) 32 Alanine Aminotransferase (ALT/SGPT) 84 H Alkaline Phosphatase 251 H Total Protein 6.2 Albumin 3.3 Globulin 2.90 Albumin/Globulin Ratio 1.13 Lipase 727 H Subjective 24 Hr Interval Summary Free Text/Dictation Patient is doing well and tolerating PO diet. Having frequent BMs and states has helped with abdominal discomfort. Exam/Review of Systems Exam Vitals Vital Signs Date Temp Pulse Resp B/P (MAP) Pulse Ox O2 O2 Flow FiO2 Time Delivery Rate 12/09/18 98.4 62 19 135/69 97 11:03 (91) Intake and Output 12/08/18 12/08/18 12/09/18 1515:00 23:00 07:00 IntakeIntake Total 100 ml 870 ml 1500 ml BalanceBalance 100 ml 870 ml 1500 ml Exam General: Patient is laying in bed and answers questions appropriately Eyes: EOMI, pupils reactive to light Neck: Supple Respiratory: Clear to auscultation bilaterally. no wheezing Cardiovascular: regular rate and rhythm, no obvious murmurs Gastrointestinal: soft, nontender, nondistended, bowel sounds heard. Ext: Moves all extremities spontaneously Skin: No new skin lesions Results Results 24hrs Laboratory Tests Test 12/09/18 05:50 White Blood Count 9.3 # Red Blood Count 3.44 L Hemoglobin 9.7 L Hematocrit 29.8 L Mean Corpuscular Volume 86.6 Mean Corpuscular Hemoglobin 28.2 L Mean Corpuscular Hemoglobin Concent 32.6 Red Cell Distribution Width 15.9 H Platelet Count 360 # Mean Platelet Volume 11.9 H Immature Granulocytes % 1.200 H Neutrophils % 62.8 Lymphocytes % 22.2 Monocytes % 9.1 Eosinophils % 3.7 Basophils % 1.0 Nucleated Red Blood Cells % 0.0 Immature Granulocytes # 0.110 H Neutrophils # 5.8 Lymphocytes # 2.1 Monocytes # 0.8 Eosinophils # 0.3 Basophils # 0.1 Nucleated Red Blood Cells # 0.0 Sodium Level 144 Potassium Level 3.7 Chloride Level 111 H Carbon Dioxide Level 25 Anion Gap 8 Blood Urea Nitrogen 3 L Creatinine 0.78 Est Glomerular Filtrat Rate mL/min > 60 Glucose Level 129 Calcium Level 8.6 Magnesium Level 2.0 Total Bilirubin 0.5 Direct Bilirubin 0.00 Indirect Bilirubin 0.5 Aspartate Amino Transf (AST/SGOT) 32 Alanine Aminotransferase (ALT/SGPT) 84 H Alkaline Phosphatase 251 H Total Protein 6.2 Albumin 3.3 Globulin 2.90 Albumin/Globulin Ratio 1.13 Lipase 727 H Medications Medication Current Medications Ondansetron HCl (Zofran Inj) 4 mg Q6H PRN IV NAUSEA/VOMITING Last administered on 12/08/18at 20:21; Admin Dose 4 MG; Start 12/03/18 at 11:30 Zolpidem Tartrate (Ambien) 5 mg QHS PRN PO .INSOMNIA; Start 12/03/18 at 11:30 Lorazepam (Ativan) 0.5 mg Q8H PRN PO ANXIETY; Start 12/03/18 at 11:30 Piperacillin Sod/ Tazobactam Sod 100 ml @ 200 mls/hr Q6 IVPB Last administered on 12/09/18at 06:00; Admin Dose 200 MLS/HR; Start 12/04/18 at 10:00 Famotidine (Pepcid Iv) 20 mg Q12H IV Last administered on 12/09/18at 08:00; Admin Dose 20 MG; Start 12/05/18 at 09:00 Potassium Chloride/Dextrose/ Sod Cl 1,000 ml @ 100 mls/hr Q10H IV Last administered on 12/09/18at 04:02; Admin Dose 100 MLS/HR; Start 12/04/18 at 13:00 Tramadol HCl (Ultram) 50 mg Q6H PRN PO MODERATE PAIN LEVEL 4-6; Start 12/06/18 at 11:00 Duloxetine HCl (Cymbalta) 60 mg DAILY PO Last administered on 12/06/18at 16:34; Admin Dose 60 MG; Start 12/06/18 at 16:00; Status Hold Atropine Sulfate (Atropine (Syringe)) 0.5 mg PRN PRN IV bradycardia; Start 12/07/18 at 04:30 Polyethylene Glycol (Miralax) 17 gm DAILY PRN PO constipation; Start 12/07/18 at 09:00 Metoclopramide HCl (Reglan) 10 mg Q4H PRN IV nausea; Start 12/07/18 at 09:00 TRINY CHRISTIE MD December 09, 2018 12:16
[2018-12-09] MEDS ORDERED: FAMO20TA18 PO (12:19)
[2018-12-09] MEDS ORDERED: TRAM50TA2 PO (12:19)
[2018-12-09] MEDS ORDERED: ONDA4TAB14 PO (12:21)
--- NOTE | 2018-12-09 12:26 | PDOCDIS ---
Discharge Instructions DIAGNOSIS Discharge Diagnosis 1. Acute gallstone pancreatitis- improving 2. Cholelithiasis 3. Transaminitis- resolving 4. Depression with anxiety 5. Dyslipidemia CONDITION 2 [id number] Patient Condition: [id number] Stable HOME CARE INSTRUCTIONS: [id number] Diet Instructions: [id number] Low Fat /Cholesterol ACTIVITY: [id number] Activity Restrictions: [id number] No Restrictions FOLLOW UP/APPOINTMENTS Follow-up Plan 1. Follow up with your primary care physician in 1-[address] Nails office to make arrangements for outpatient surgical intervention 3. Take tramadol as needed for pain 4. Take Zofran as needed for nausea 5. If experiencing any concerning symptoms, please return to the nearest emergency department 6. Avoid fatty, greasy foods if possible REFERRALS Other Referrals Viktor Rice MD Specialty General Surgery Comments Office Address [id number] [address] Office TRINY CHRISTIE MD December 09, 2018 12:26
--- NOTE | 2018-12-09 16:11 | DS ---
Date/Time of Note Date/Time of Note DATE: 12/09/18 TIME: 16:05 Discharge Summary Admission/Discharge Info Admit Date/Time December 03, 2018 at 10:10 Discharge Date/Time December 09, 2018 at 13:50 Discharge Diagnosis 1. Acute gallstone pancreatitis- improving 2. Cholelithiasis 3. Transaminitis- resolving 4. Depression with anxiety 5. Dyslipidemia Patient Condition: Stable Consults General Surgery- Dr. Rice GI- Dr. Yvette Clark of Present Illness A 48-year-old female with past medical history of morbid obesity, status post weight loss surgery, which sounds like gastric stapling, gastric ulcer, major depressive disorder, who was found to have a jejunal ulcer at [place] because of abdominal pain and acute pancreatitis. She has a history of gallstones. She has not had similar pain before. Currently, she has been feeling sick for the last 10 days. However, over the last 1 day, she has got some worsening epigastric abdominal pain that radiates to her back. Denies vomiting but she is having a lot of nausea. Pain was rated at a 10 out of 10. There is no hematemesis, hematochezia or melenic stool however. Imaging studies confirmed acute pancreatitis with the presence of elevation in her lipid panels, she was also found to have leukocytosis. She was transferred to us for further management. Hospital Course Patient was admitted to medical surgical floor for further workup of abdominal pain. GI was consulted given suspicion for gallstone pancreatitis. MRCP findings, however, were negative for acute choledocholithiasis. She was noted with elevated lipase and given IVF and kept NPO. General surgery was consulted as well given symptomatic cholelithiasis. Patient was upset since was kept NPO for 4 days and demanded to eat. Discussion was held that if she ate, we would do the conservative route of treatment given she would lose the OR time. She was agreeable. After eating, pain was worsening in epigastric area and she was switched back to NPO diet. She had multiple bowel movements and abdominal pain was significantly better. She was able to tolerate PO intake without any issues. Surgery discussed outpatient follow up for cholecystectomy which she was agreeable to. Patient was discharged home in good condition. Home Meds Active Scripts Ondansetron (Ondansetron Odt) 4 Mg Tab.rapdis, 4 MG PO Q6H PRN for NAUSEA AND/OR VOMITING for 7 Days, #20 TAB Prov:TRINY CHRISTIE MD 12/09/18 Famotidine* (Famotidine*) 20 Mg Tablet, 20 MG PO DAILY for 30 Days, #30 TAB 1 Refill Prov:TRINY CHRISTIE MD 12/09/18 Tramadol HCl (Tramadol HCl) 50 Mg Tablet, 50 MG PO Q6H PRN for MODERATE PAIN LEVEL 4-6 for 10 Days, #40 TAB Prov:TRINY CHRISTIE MD 12/09/18 Follow-up Plan 1. Follow up with your primary care physician in 1-[address] Nails office to make arrangements for outpatient surgical intervention 3. Take tramadol as needed for pain 4. Take Zofran as needed for nausea 5. If experiencing any concerning symptoms, please return to the nearest emergency department 6. Avoid fatty, greasy foods if possible Primary Care Provider Not On Staff Doctor Time spent on discharge: > 30 minutes Pending Labs Laboratory Tests Test 12/09/18 05:50 White Blood Count 9.3 10^3/ul (4.8-10.8) Red Blood Count 3.44 10^6/ul (4.20-5.40) Hemoglobin 9.7 g/dl (12.0-16.0) Hematocrit 29.8 % (37.0-47.0) Mean Corpuscular Volume 86.6 fl (82.0-101.0) Mean Corpuscular Hemoglobin 28.2 pg (29.0-33.0) Mean Corpuscular Hemoglobin Concent 32.6 g/dl (32.0-37.0) Red Cell Distribution Width 15.9 % (11.5-14.5) Platelet Count 360 10^3/UL (140-415) Mean Platelet Volume 11.9 fl (7.4-10.4) Immature Granulocytes % 1.200 % (0.001-0.429) Neutrophils % 62.8 % (39.0-77.0) Lymphocytes % 22.2 % (15.0-51.0) Monocytes % 9.1 % (0.0-11.0) Eosinophils % 3.7 % (0.0-7.0) Basophils % 1.0 % (0.0-2.0) Nucleated Red Blood Cells % 0.0 /100WBC (0.0-0.0) Immature Granulocytes # 0.110 10^3/ul (0.0-0.031) Neutrophils # 5.8 10^3/ul (1.6-7.5) Lymphocytes # 2.1 10^3/ul (0.8-2.9) Monocytes # 0.8 10^3/ul (0.3-0.9) Eosinophils # 0.3 10^3/ul (0.0-0.5) Basophils # 0.1 10^3/ul (0.0-0.1) Nucleated Red Blood Cells # 0.0 10^3/ul (0.0-0.0) Sodium Level 144 mmol/L (135-144) Potassium Level 3.7 mmol/L (3.5-5.1) Chloride Level 111 mmol/L (97-110) Carbon Dioxide Level 25 mmol/L (21-31) Anion Gap 8 (5-13) Blood Urea Nitrogen 3 mg/dl (7-20) Creatinine 0.78 mg/dl (0.44-1.00) Est Glomerular Filtrat Rate mL/min > 60 mL/min (>60) Glucose Level 129 mg/dl (70-220) Calcium Level 8.6 mg/dl (8.4-10.2) Magnesium Level 2.0 mg/dl (1.7-2.5) Total Bilirubin 0.5 mg/dl (0.2-1.3) Direct Bilirubin 0.00 mg/dl (0.00-0.20) Indirect Bilirubin 0.5 mg/dl (0-1.1) Aspartate Amino Transf (AST/SGOT) 32 IU/L (15-46) Alanine Aminotransferase (ALT/SGPT) 84 IU/L (13-69) Alkaline Phosphatase 251 IU/L (42-121) Total Protein 6.2 g/dl (6.1-8.1) Albumin 3.3 g/dl (3.3-4.9) Globulin 2.90 g/dl (1.3-3.2) Albumin/Globulin Ratio 1.13 Lipase 727 U/L (23-300) TRINY CHRISTIE MD December 09, 2018 16:11
== END 2018-12-09 13:50 | disposition home or self-care (01) | DRG 439 ==
LOC: PP2 10:10 → TEL 12-07 06:38
PROVIDERS: ADMIT Internal Medicine; ATTEND Internal Medicine
DX: K85.10 Biliary acute pancreatitis without necrosis or infection (principal); R65.10 Systemic inflammatory response syndrome (SIRS) of non-infectious origin without acute organ dysfunction; K80.00 Calculus of gallbladder with acute cholecystitis without obstruction; F41.9 Anxiety disorder, unspecified; F41.8 Other specified anxiety disorders; E78.5 Hyperlipidemia, unspecified; E87.6 Hypokalemia; Z98.84 Bariatric surgery status
CPT/HCPCS: 74181; 76705; 78226; 80053; 80061; 81003; 82150; 82550; 82553; 83605; 83690; 83735; 84100; 84436; 84443; 84479; 84484; 84703; 85025; 87081; 87086; 93005; A9537; J1170; J2405; J2543; J3475; J3480; J7030; J7042